=== PATIENT | female | born 1945 | race Hispanic/Latino ===

== ENCOUNTER 2017-04-18 14:20 | Inpatient (IN) | payer MEDICARE ==
--- NOTE | 2017-04-18 14:40 | ED PDOC ---
HPI: Chest Pain Time Seen by Provider: 04/18/17 14:29 Chief Complaint (Nursing): Palpitations Chief Complaint (Provider): Palpitations History Per: Patient History/Exam Limitations: no limitations Onset/Duration Of Symptoms: Sudden Onset Past Medical History Reviewed: Historical Data, Nursing Documentation, Vital Signs Vital Signs: Last Vital Signs Temp 96.8 F L 04/18/17 14:34 Pulse 146 H 04/18/17 14:30 Resp 20 04/18/17 14:30 BP 119/92 H 04/18/17 14:30 Pulse Ox 96 04/18/17 14:30 - Medical History PMH: Atrial Fibrillation, Cardia Arrhythmia, HTN, Hypercholesterolemia Denies: Chronic Kidney Disease - Surgical History Surgical History: Tonsillectomy - Family History Family History: States: Unknown Family Hx - Home Medications Home Medications: Ambulatory Orders Medication Instructions Recorded Aspirin [Ecotrin] 81 mg PO DAILY #30 ect 07/15/14 Atorvastatin [Lipitor] 20 mg PO HS #0 tab 07/15/14 Digoxin 0.25 mg PO DAILY #30 tab 07/15/14 Nadolol [Corgard] 40 mg PO DAILY #0 tab 07/15/14 traMADol [Ultram] 50 mg PO Q4 PRN #0 tab 07/15/14 Bimatoprost [Lumigan] 2.5 ml BOTHEYES QPM 04/08/16 Timolol 0.25% Ophth [Timoptic 1 drop OS BID 04/08/16 0.25% Ophth Soln] Zolpidem [Ambien] 10 mg PO PRN PRN 04/08/16 Oxycodone HCl/Acetaminophen 1 mg PO Q4 PRN #0 tablet 04/22/16 [Percocet 5-325 mg Tablet] - Allergies Allergies/Adverse Reactions: Allergies Allergy/AdvReac Type Severity Reaction Status Date / Time avocado Allergy SWELLING Verified 04/18/17 14:33 banana Allergy SWELLING Verified 04/18/17 14:33 kiwi Allergy SWELLING Verified 04/18/17 14:33 latex Allergy ANAPHYLAXIS Verified 04/18/17 14:33 Penicillins Allergy ANAPHYLAXIS Verified 04/18/17 14:33 blue cheese Allergy SWELLING Uncoded 04/18/17 14:33 Review of Systems ROS Statement: Except As Marked, All Systems Reviewed And Found Negative Constitutional: Positive for: Weakness Cardiovascular: Positive for: Palpitations, Other (Rapid heart rate). Negative for: Chest Pain Respiratory: Positive for: Shortness of Breath Gastrointestinal: Positive for: Nausea, Vomiting Neurological: Positive for: Weakness, Numbness, Other (Tingling of hands and feet) - ECG O2 Sat by Pulse Oximetry: 96
--- NOTE | 2017-04-18 14:54 | ED PDOC ---
HPI: Chest Pain Time Seen by Provider: 04/18/17 14:29 Chief Complaint (Nursing): Palpitations Chief Complaint (Provider): Palpitations History Per: EMS History/Exam Limitations: no limitations Onset/Duration Of Symptoms: Mins (prior to arrival ) Current Symptoms Are (Timing): Intermittent Episodes Additional Complaint(s): Serena Quinteros is a 72-year-old female with a past medical history of hypertension, hypercholesterolemia, atrial fibrillation, and arrythmia who presents to the ED via EMS for the evaluation of palpitations associated with numbness and tingling in her fingers and legs, shortness of breath, nausea, vomiting, and headache. She denies chest pain. She states that her palpitations and other symptoms were onset earlier today when she was at a routine check-up appointment with her ice seller. On field patient was given two doses of adenocard by paramedics. Technical Sales Consultant: Baltazar Khalil MD Past Medical History Reviewed: Historical Data, Nursing Documentation, Vital Signs Vital Signs: Last Vital Signs Temp 98.1 F 04/19/17 08:00 Pulse 68 04/19/17 09:03 Resp 18 04/19/17 08:00 BP 159/81 H 04/19/17 09:03 Pulse Ox 96 04/19/17 09:26 - Medical History PMH: Atrial Fibrillation, Cardia Arrhythmia, HTN, Hypercholesterolemia Denies: Chronic Kidney Disease - Surgical History Surgical History: Tonsillectomy - Family History Family History: States: Unknown Family Hx - Home Medications Home Medications: Ambulatory Orders Medication Instructions Recorded Amiodarone Hydrochloride 200 mg PO DAILY 04/18/17 [Cordarone] Aspirin [Ecotrin] 81 mg PO DAILY 04/18/17 Atorvastatin [Lipitor] 20 mg PO HS 04/18/17 Latanoprost 0.005% Opht [Xalatan 1 drop EACHEYE HS 04/18/17 Opht] Metoprolol Succinate [Toprol XL] 100 mg PO DAILY 04/18/17 Timolol 0.25% Ophth [Timoptic 1 drop EACHEYE BID 04/18/17 0.25% Ophth Soln] Zolpidem [Ambien] 5 mg PO HS PRN 04/18/17 traMADol [Ultram] 50 mg PO Q6H PRN 04/18/17 - Allergies Allergies/Adverse Reactions: Allergies Allergy/AdvReac Type Severity Reaction Status Date / Time avocado Allergy SWELLING Verified 04/18/17 14:33 banana Allergy SWELLING Verified 04/18/17 14:33 kiwi Allergy SWELLING Verified 04/18/17 14:33 latex Allergy ANAPHYLAXIS Verified 04/18/17 14:33 Penicillins Allergy ANAPHYLAXIS Verified 04/18/17 14:33 blue cheese Allergy SWELLING Uncoded 04/18/17 14:33 Review of Systems ROS Statement: Except As Marked, All Systems Reviewed And Found Negative Cardiovascular: Positive for: Palpitations. Negative for: Chest Pain Respiratory: Positive for: Shortness of Breath Gastrointestinal: Positive for: Nausea, Vomiting Neurological: Positive for: Numbness (in fingers and legs ), Headache, Other ( tingling in fingers and legs ) Physical Exam - Reviewed Nursing Documentation Reviewed: Yes Vital Signs Reviewed: Yes - Physical Exam Appears: Positive for: Well, Non-toxic, Uncomfortable Head Exam: Positive for: ATRAUMATIC, NORMAL INSPECTION, NORMOCEPHALIC Skin: Positive for: Normal Color, Warm, DRY Eye Exam: Positive for: Normal appearance ENT: Positive for: Normal ENT Inspection Neck: Positive for: Normal, Painless ROM, Supple Cardiovascular/Chest: Positive for: Regular Rate, Rhythm, Other (Alternating tachycardia and sinus rhythm ). Negative for: Edema Respiratory: Positive for: Normal Breath Sounds Gastrointestinal/Abdominal: Positive for: Normal Exam, Bowel Sounds, Soft. Negative for: Tenderness Back: Positive for: Normal Inspection Extremity: Positive for: Normal ROM. Negative for: Pedal Edema Neurologic/Psych: Positive for: Alert, Oriented - Laboratory Results Result Diagrams: 04/19/17 06:00 04/19/17 06:00 - ECG ECG: Positive for: Viewed By Wy ECG Rhythm: Positive for: Sinus Tachycardia, ST/T Changes (depressions in II,III , AVF) O2 Sat by Pulse Oximetry: 96 ([id number]) Pulse Ox Interpretation: Normal - Critical Care Total Time (In Min): 30 Comments: patient had labile BP reading, was in distress and had alternating tachycardia and NSR. There is evidence of myocardial ischemia on EKG finding. Medical Decision Making Medical Decision Making: Initial Impression: rule out myocardial ischemia Initial Plan: * labs * Troponin I * PTT * PT * Adenosine 12 mg IV * lanoxin 0.5 mg IV * reevaluation 14:45 4 mg zofran IV 14:49 adenosine 12 mg IV 14:50 Consulted ice seller, Dr. Khalil who believes patient should be admitted under his service, potentially in the ICU for overnight monitoring. Recommends to check labs and give IV fluids. Digoxin 0.5mg IVP also given in conjunction with discussion with Dr. Khalil. Cardizem would also be a good choice but there are concerns over the labile BP readings. Scribe Attestation: Documented by Mel Pedro, acting as a scribe for Bri Lacey MD. Provider Scribe Attestation: All medical record entries made by the Scribe were at my direction and personally dictated by me. I have reviewed the chart and agree that the record accurately reflects my personal performance of the history, physical exam, medical decision making, and the department course for this patient. I have also personally directed, reviewed, and agree with the discharge instructions and disposition. Disposition - Clinical Impression Clinical Impression: Supraventricular tachycardia, Hypokalemia - Patient ED Disposition Is Patient to be Admitted: Transfer of Care - Disposition Disposition: Transfer of Care Disposition Time: 15:00 Condition: GUARDED Patient Signed Over To: Susannah Verde Handoff Comments: Patient is signed out to Susannah Verde MD pending ED work up, reevaluation and final disposition. - POA Present On Arrival: None
[2017-04-18] MEDS ORDERED: Digoxin 500 mcg/2ml (0.5 mg/2ml) Inj IVP ONE (14:57)
[2017-04-18] MEDS ORDERED: Sodium Chloride 0.9% 1,000 ML IV STA (14:59)
[2017-04-18] MEDS ORDERED: Digoxin 500 mcg/2ml (0.5 mg/2ml) Inj ONE (15:03)
[2017-04-18 15:18] LABS: BASO % 0.4 % (0.0-2.0); EOS # 0.1 K/uL (0.0-0.7); EOS % 0.8 % (0.0-4.0); HEMOGLOBIN 14.7 g/dL (12.0-16.0); LYMPH # 3.4 K/uL (1.0-4.3); LYMPH % 32.5 % (20.0-40.0); MEAN CELL VOLUME 83.8 fl (81.0-99.0); MEAN CORPUSCULAR HEMOGLOBIN 28.2 pg (27.0-31.0); MEAN CORPUSCULAR HGB CONC 33.6 g/dL (33.0-37.0); MEAN PLATELET VOLUME 8.4 fl (7.2-11.7); MONO # 0.9 K/uL (0.0-0.8); MONO % 8.3 % (0.0-10.0); NEUT # 6.1 K/uL (1.8-7.0); RBC 5.21 Mil/uL (3.80-5.20); RED CELL DISTRIBUTION WIDTH 14.7 % (11.5-14.5); WHITE BLOOD COUNT 10.5 K/uL (4.8-10.8)
--- NOTE | 2017-04-18 15:18 | ED PDOC ---
- Laboratory Results Result Diagrams: 04/18/17 15:00 04/18/17 15:00 - ECG O2 Sat by Pulse Oximetry: 96 ([id number]) Pulse Ox Interpretation: Normal - Progress Re-evaluation Time: 17:00 Condition: Improved - Critical Care Total Time (In Min): 30 Documented Critical Care: Time excludes all time spent performint seperately billable procedures Medical Decision Making Medical Decision Makin:00 Patient is signed out to Bri Lacey MD pending ED work up, reevaluation and final disposition. Pt with SVT, spontaneously converts to sinus, but recurs. Had been given adenocard 12mg in ER and converted to sinus but recurred. Dr Lacey d/w Dr Khalil Cardiology, who recommended digoxin. 16:00 Pt with more frequent and prolonged episodes of sinus rhythm. Pt feeling better. Troponin negative. ABG demonstrated hyperventilation. Advised pt to breathe normally (she was attempting deep breaths to correct her SVT) and NC O2 removed. Potassium ordered for hypokalemia. DW Dr Khalil again. Advised ICU placement RANDI Llamas for ICU placement RANDI Johnson resident for admission to Dr Marie. DW pt and family findings and plan of care. Scribe Attestation: Documented by Mel Pedro, acting as a scribe for Susannah Verde MD. Provider Scribe Attestation: All medical record entries made by the Scribe were at my direction and personally dictated by me. I have reviewed the chart and agree that the record accurately reflects my personal performance of the history, physical exam, medical decision making, and the department course for this patient. I have also personally directed, reviewed, and agree with the discharge instructions and disposition. Disposition - Clinical Impression Clinical Impression: Supraventricular tachycardia, Hypokalemia - POA Present On Arrival: None - Disposition Disposition: Admitted as In-Patient Disposition Time: 15:00 Condition: GUARDED
[2017-04-18 15:23] LABS: ALB/GLOB RATIO 1.7 (1.0-2.1); ALBUMIN 4.3 g/dL (3.5-5.0); ALT/SGPT 24 U/L (9-52); AST/SGOT 21 U/L (14-36); BLOOD UREA NITROGEN 13 mg/dl (7-17); CALCIUM 9.6 mg/dL (8.4-10.2); GFR AFRICAN-AMERICAN 59; GFR NON-AFRICAN AMERICAN 49
[2017-04-18] MEDS ORDERED: Potassium Chloride 20 mEq ER Tab PO STA (15:26)
[2017-04-18 15:46] LABS: PARTIAL THROMBOPLASTIN TIME 31.4 Seconds (25.6-37.1); PROTHROMBIN TIME 11.2 Seconds (9.8-13.1)
[2017-04-18] MEDS ORDERED: Potassium CL 10mEq/100ml 100 ML IVPB STA (15:49)
[2017-04-18] MEDS ORDERED: Potassium Chloride 10 mEq ER Tab PO ONE (15:52)
--- NOTE | 2017-04-18 16:19 | RAD ---
PROCEDURE: CHEST RADIOGRAPH, 1 VIEW HISTORY: palpitations COMPARISON: 04/04/2016. FINDINGS: LUNGS: The lungs are well inflated and clear. PLEURA: No pneumothorax or pleural fluid seen. CARDIOVASCULAR: Normal. OSSEOUS STRUCTURES: No significant abnormalities. VISUALIZED UPPER ABDOMEN: Normal. OTHER FINDINGS: None. IMPRESSION: No active pulmonary disease.
[2017-04-18 16:23] LABS: ABG ALLEN TEST YES; ARTERIAL BLOOD GAS HCO3 24.6 mmol/L (21-28); ARTERIAL BLOOD GAS O2 SAT 99.8 % (95-98); ARTERIAL BLOOD GAS PCO2 19 mm/Hg (35-45); ARTERIAL BLOOD GAS PO2 174 mm/Hg (80-100); ARTERIAL BLOOD GAS TCO2 19.3 mmol/L (22-28)
[2017-04-18 17:15] LABS: SQUAMOUS EPITHIAL 5 /hpf (0-5); URINE BACTERIA RARE (<OCC); URINE BILIRUBIN NEGATIVE (NEGATIVE); URINE BLOOD NEGATIVE (NEGATIVE); URINE CLARITY CLEAR (Clear); URINE COLOR STRAW (YELLOW); URINE GLUCOSE (UA) NEG (Normal); URINE LEUKOCYTE ESTERASE TRACE Leu/uL (Negative); URINE NITRATE NEGATIVE (NEGATIVE); URINE PROTEIN 30 mg/dL (NEGATIVE); URINE UROBILINOGEN 0.2-1.0 mg/dL (0.2-1.0)
--- NOTE | 2017-04-18 18:27 | CARD ---
APPROVED REPORT EKG Measurement Heart [id number] <Conclusion> Atrial fibrillation Cannot rule out Anterior infarct, age undetermined ST & T wave abnormality, consider lateral ischemia Abnormal ECG
--- NOTE | 2017-04-18 18:47 | CP.CCUPN ---
CCU Subjective - Physician Review Subjective (Free Text): Consult for ICU admission and management, discussed with Contact Person and ER MD: 72F with PMH: HYN, Hyperlipidemia, PSVT, Thyroidectomy, negative Pharm EST testing in oct 2015 and normal ECHO- admitted today after being sent over from Cardios office and noted to be in SVT. She had complained of feeling dizzy, weak with palpitations, paresthesias / numbness in the hands and feet, +SOB, which persisted over 1 hour. As EMS was called, patient vomited twice before being transported to the ER. In the ER, found to be in SVT at rate 188. Given Adenosine 6mg, then 12mg, with very brief-short lived effect. In ER, given more adenosine and finally Digoxin which slowed rate down to below 100. No hypotension noted, but with SBPs in 110s, given a 1 L saline fluid bolus. Presently, HR 88, SBP 150, awake and alert and feels less dizzy, denies any headaches, vertigo, n/v, diaphoresis, CP or SOB, MICHEL, leg swelling; no focal neuro deficits, nor any abdominal complaints. Patient has been taking ASA regularly and took extra 2 tabs adult ASA last night for migraines and this AM prior to going out for her regularly scheduled Cardio visit. Family members state she has demonstrated panic attacks in the past. Transported to ICU from ER , arrived to ICU in NSR at 71/min, SBP 149/75 and felt to back in her usual state of health. Drug Allergies: Penicillin Home Meds: Amiodarone, Toprol XL, ASA, Xalatan, Timolol opth, Ambien, Ultram prn ROS: as above, other 10+ system review with no pertinent negs or positives. PMSFH: All nursing and physician documentation for this admission reviewed, no new pertinent info relevant to current medical problems noted. CCU Objective - Vital Signs / Intake & Output Vital Signs (Last 4 hours): Vital Signs Temp Pulse Resp BP Pulse Ox 04/18/17 18:27 98 F 68 17 149/71 97 04/18/17 17:00 98.0 F 89 14 141/84 100 04/18/17 16:26 88 16 152/78 H 100 - Physical Exam Head: Positive for: Normocephalic Pupils: Positive for: PERRL Extroacular Muscles: Positive for: EOMI Conjunctiva: Positive for: Normal Ears: Positive for: Normal Mouth: Positive for: Moist Mucous Membranes Pharnyx: Positive for: Normal Nose (Internal): Positive for: Normal Inspection Neck: Negative for: Meningeal Signs, JVD, Lymphadenopathy, Bruit Respiratory/Chest: Positive for: Clear to Auscultation Cardiovascular: Positive for: Regular Rate and Rhythm. Negative for: Murmurs, Rub Abdomen: Positive for: Normal Bowel Sounds. Negative for: Tenderness, Distention Lower Extremity: Positive for: NORMAL PULSES. Negative for: Edema, CALF TENDERNESS, Cyanosis Neurological: Positive for: GCS=15, CN II-XII Intact, Speech Normal, Motor Func Grossly Intact Skin: Positive for: Warm. Negative for: Rashes - Medications Active Medications: Active Medications Generic Name Dose Route Start Last Admin Trade Name Freq PRN Reason Stop Dose Admin Amiodarone HCl 200 mg 04/18/17 18:28 Cordarone PO DAILY [facility] Aspirin 81 mg 04/19/17 09:00 Ecotrin PO DAILY [facility] Atorvastatin Calcium 20 mg 04/19/17 09:00 Lipitor PO DAILY [facility] Enoxaparin Sodium 40 mg 04/19/17 09:00 Lovenox SC DAILY [facility] Protocol Famotidine 40 mg 04/18/17 22:00 Pepcid PO HS [facility] Metoprolol Succinate 100 mg 04/19/17 09:00 Toprol Xl PO DAILY [facility] Tramadol HCl 50 mg 04/18/17 18:42 Ultram PO Q6 PRN Pain, moderate (4-7) Zolpidem Tartrate 5 mg 04/18/17 18:29 Ambien PO HS PRN Insomnia - Patient Studies Lab Studies: Lab Studies 04/18/17 04/18/17 Range/Units 16:20 16:15 pCO2 19 L* (35-45) mm/Hg pO2 174 H (80-100) mm/Hg HCO3 24.6 (21-28) mmol/L ABG pH 7.60 H (7.35-7.45) ABG Total CO2 19.3 L (22-28) mmol/L ABG O2 Saturation 99.8 H (95-98) % ABG Base Excess -0.5 (-2.0-3.0) mmol/L Darrell Test Yes ABG Potassium 3.1 L (3.6-5.2) mmol/L A-a O2 Difference 30.0 mm/Hg Sodium 140.0 (132-148) mmol/L Chloride 114.0 H (98-107) mmol/L Glucose 103 (65-105) mg/dL Lactate 1.4 (0.7-2.1) mmol/L FiO2 32.0 % Crit Value Called To Dr fady batres Crit Value Called By Rt Crit Value Read Back Y Blood Gas Notified Time 1620 Arterial Blood Potassium 3.1 L (3.6-5.2) mmol/L Urine Color Straw (YELLOW) Urine Clarity Clear (Clear) Urine pH 7.0 (5.0-8.0) Ur Specific Kenneth 1.006 (1.003-1.030) Urine Protein 30 (NEGATIVE) mg/dL Urine Glucose (UA) Neg (Normal) mg/dL Urine Ketones Trace (NEGATIVE) mg/dL Urine Blood Negative (NEGATIVE) Urine Nitrate Negative (NEGATIVE) Urine Bilirubin Negative (NEGATIVE) Urine Urobilinogen 0.2-1.0 (0.2-1.0) mg/dL Ur Leukocyte Esterase Trace (Negative) Gerardo/uL Urine RBC (Auto) 3 (0-3) /hpf Urine Microscopic WBC 3 (0-5) /hpf Ur Squamous Epith Cells 5 (0-5) /hpf Urine Bacteria Rare (<OCC) Laboratory Results - last 24 hr 04/18/17 04/18/17 16:15 16:20 pCO2 19 L* pO2 174 H HCO3 24.6 ABG pH 7.60 H ABG Total CO2 19.3 L ABG O2 Saturation 99.8 H ABG Base Excess -0.5 Darrell Test Yes ABG Potassium 3.1 L A-a O2 Difference 30.0 Sodium 140.0 Chloride 114.0 H Glucose 103 Lactate 1.4 FiO2 32.0 Crit Value Called To Dr fady batres Crit Value Called By Rt Crit Value Read Back Y Blood Gas Notified Time 1620 Arterial Blood Potassium 3.1 L Urine Color Straw Urine Clarity Clear Urine pH 7.0 Ur Specific Kenneth 1.006 Urine Protein 30 Urine Glucose (UA) Neg Urine Ketones Trace Urine Blood Negative Urine Nitrate Negative Urine Bilirubin Negative Urine Urobilinogen 0.2-1.0 Ur Leukocyte Esterase Trace Urine RBC (Auto) 3 Urine Microscopic WBC 3 Ur Squamous Epith Cells 5 Urine Bacteria Rare Radiology Interpretations (Free Text): (My Interp) CXR: clear lung carroll. EKG/Cardiology Interpretations (Free Text): (My Interp) EKG: A Fib, 94/min, poor R wave progression anteriorly, T inversions in inferolateral leads. Fingerstick Blood Sugar Results: 112 Review of Systems - Review of Systems Review of Systems: As Above. Critical Care Progress Note - Extremities/Vascular Does the Patient have a Central Venous Catheter?: No Does the Patient need a Central Venous Catheter?: No Does the Patient have a Martin Catheter?: No Does the Patient need a Martin Catheter?: No - Prophylaxis GI Prophylaxis GI: Not Indicated - Prophylaxis DVT Prophylaxis DVT: Lovenox - Nutrition Nutrition: Nutrition Category Date Time Status Heart Healthy Diet [DIET] Diets 04/18/17 Dinner Active Assessment/Plan - Assessment and Plan (Free Text) Assessment: MAJOR PROBLEMS: 1. PSVT with Paroxysmal A fib with RVR 2. Resp Alkalosis 2 Anxiety / Panic Disorder 3. Hypokalemia 4. Mild Hyperbilirubinemia with normal AP/Transaminases 5. h/o Thyroidectomy, r/o Acquired hypothyroidism Plan: PLAN: 1. Ineffectiveness of Adenosine noted, Digoxin appears to have some slowing effect, she has been on Amiodarone and would bolus her with IV Amio 150mg now and start a drip if tachycardia recurs. 2. Serial Trops and EKG 3. Consider cautious anxiolysis with PO Xanax. Check repeat ABG. Resolution of alkalotic state will improve all presenting symptoms and tachyarrhythmia. 4. TFTs 5. Supplement K, check Mag / Phos 6. r/o other possible toxic medication effects: Salicylate level. 7. Consider abdominal / liver US study.
--- NOTE | 2017-04-18 20:15 | CP.PCM.HP ---
<Dario Wang - Last Filed: 04/19/17 06:22> History of Present Illness - History of Present Illness History of Present Illness: 72 yo F w PMHx of HTN, Afib, and HLD is admitted due to palpitations, headache, nausea, and vomiting due to SVT and paroxysmal Afib. She was at her [employer] 's office when she began to feel symptoms, which occurred at same time as SVT was noted, as per Dr Khalil. EMS was called, adenosine was attempted to break her rhythm, but any such resolution was only momentary. When she got to the ER, she was given Digoxin 0.5mg IVP which broke her SVT and eventually allowed her to convert back to Sinus Rhythm. Pt described feeling weak, diaphoretic, with numbness and tingling during the episode, but stated that her symptoms drastically improved soon after she converted. 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 Denies fevers/ chills, SOB, dyspnea, cough, abdominal pain, hematuria, dysuria, or other myalgias. PMD: Dr Craig Cardio: Dr Khalil PMHx: HTN, Paroxysmal Afib, and HLD PSHx: Denies Allergies: PCN, Latex Home Meds: Amiodarone 200mg, ASA 81mg, Lipitor 20mg, Toprol XL 100mg, Ambien 5mg SHx: denies etoh, cigarettes, illicit drugs ED Course: -CBC -CMP -Troponin -PT/INR/PTT -Adenosine 12mg -Digoxin 0.5mg -Zofran 4mg Present on Admission - Present on Admission Any Indicators Present on Admission: No History of DVT/PE: No History of Uncontrolled Diabetes: No Urinary Catheter: No Decubitus Ulcer Present: No Review of Systems - Review of Systems All systems: reviewed and no additional remarkable complaints except (see HPI) Past Patient History - Past Medical History & Family History Past Medical History?: Yes - Past Social History Smoking Status: Never Smoked - CARDIAC Hx Cardiac Disorders: Yes - PULMONARY Hx Respiratory Disorders: No - NEUROLOGICAL Hx Neurological Disorder: No - HEENT Hx HEENT Problems: No - RENAL Hx Chronic Kidney Disease: No - ENDOCRINE/METABOLIC Hx Endocrine Disorders: No - HEMATOLOGICAL/ONCOLOGICAL Hx Blood Disorders: No - INTEGUMENTARY Hx Dermatological Problems: No - MUSCULOSKELETAL/RHEUMATOLOGICAL Hx Falls: No - GASTROINTESTINAL Hx Gastrointestinal Disorders: No - GENITOURINARY/GYNECOLOGICAL Hx Genitourinary Disorders: No - PSYCHIATRIC Hx Substance Use: No - SURGICAL HISTORY Hx Tonsillectomy: Yes - ANESTHESIA Hx Anesthesia: Yes Hx Anesthesia Reactions: No Hx Malignant Hyperthermia: No Meds Allergies/Adverse Reactions: Allergies Allergy/AdvReac Type Severity Reaction Status Date / Time avocado Allergy SWELLING Verified 04/18/17 14:33 banana Allergy SWELLING Verified 04/18/17 14:33 kiwi Allergy SWELLING Verified 04/18/17 14:33 latex Allergy ANAPHYLAXIS Verified 04/18/17 14:33 Penicillins Allergy ANAPHYLAXIS Verified 04/18/17 14:33 blue cheese Allergy SWELLING Uncoded 04/18/17 14:33 Physical Exam - Constitutional Appears: No Acute Distress - Head Exam Head Exam: ATRAUMATIC, NORMOCEPHALIC - Eye Exam Eye Exam: EOMI Pupil Exam: PERRL - ENT Exam ENT Exam: Mucous Membranes Moist - Neck Exam Neck exam: Positive for: Full Rom. Negative for: Tenderness - Respiratory Exam Respiratory Exam: Clear to Auscultation Bilateral, NORMAL BREATHING PATTERN. absent: Wheezes - Cardiovascular Exam Cardiovascular Exam: REGULAR RHYTHM - GI/Abdominal Exam GI & Abdominal Exam: Normal Bowel Sounds, Soft. absent: Tenderness - Extremities Exam Extremities exam: Negative for: calf tenderness, pedal edema - Neurological Exam Neurological exam: Alert, CN II-XII Intact, Oriented x3 - Psychiatric Exam Psychiatric exam: Normal Affect, Normal Mood - Skin Skin Exam: Dry, Normal Color, Warm Results - Vital Signs Recent Vital Signs: Last Vital Signs Temp 98.8 F 04/18/17 19:38 Pulse 72 04/18/17 19:38 Resp 13 04/18/17 19:38 BP 144/81 04/18/17 19:38 Pulse Ox 97 04/18/17 19:38 - Labs Result Diagrams: 04/18/17 15:00 04/18/17 15:00 Labs: Laboratory Results - last 24 hr 04/18/17 04/18/17 04/18/17 16:15 16:20 19:15 pCO2 19 L* pO2 174 H HCO3 24.6 ABG pH 7.60 H ABG Total CO2 19.3 L ABG O2 Saturation 99.8 H ABG Base Excess -0.5 Darrell Test Yes ABG Potassium 3.1 L A-a O2 Difference 30.0 Sodium 140.0 Chloride 114.0 H Glucose 103 Lactate 1.4 FiO2 32.0 Crit Value Called To Dr fady batres Crit Value Called By Rt Crit Value Read Back Y Blood Gas Notified Time 1620 Arterial Blood Potassium 3.1 L Urine Color Straw Urine Clarity Clear Urine pH 7.0 Ur Specific [place] 1.006 Urine Protein 30 Urine Glucose (UA) Neg Urine Ketones Trace Urine Blood Negative Urine Nitrate Negative Urine Bilirubin Negative Urine Urobilinogen 0.2-1.0 Ur Leukocyte Esterase Trace Urine RBC (Auto) 3 Urine Microscopic WBC 3 Ur Squamous Epith Cells 5 Urine Bacteria Rare Salicylates < 1.0 Assessment & Plan - Assessment and Plan (Free Text) Plan: 72 yo F w PMHx of HTN, Afib, and HLD is admitted due to palpitations, headache, nausea, and vomiting due to SVT and paroxysmal Afib 1) Paroxysmal Afib -Seemingly converted following ICU admission -TSH: Elevated at 9.65 -ASA 81mg PO Daily -Amiodarone currently 400mg PO Daily; up from 200mg at home -Metoprolol 100mg PO Daily -Digoxin 0.25mg PO Daily -f/u CBC in AM -f/u CMP in AM -f/u UCx -Consider Endocrine Consult 2) Chest Pain r/o ACS -Troponin neg x2 -BNP: 289 -EKG does not show acute DE -f/u Troponin -f/u EKG 3) HTN -Metoprolol 100mg PO Daily -Digoxin 0.25mg PO Daily -f/u BPs 4) HLD -Atorvastatin 20mg PO Daily 5) DVT Prophylaxis -Lovenox 40mg SC Daily <Adan Craig - Last Filed: 04/21/17 06:42> Results - Vital Signs Recent Vital Signs: Last Vital Signs Temp 97.6 F 04/21/17 05:21 Pulse 50 L 04/21/17 05:21 Resp 18 04/21/17 05:21 BP 150/83 04/21/17 05:21 Pulse Ox 95 04/21/17 05:21 - Labs Result Diagrams: 04/20/17 06:00 04/20/17 06:00 Labs: Laboratory Results - last 24 hr 04/20/17 04/20/17 04/20/17 06:00 06:00 06:00 WBC RBC Hgb Hct MCV MCH MCHC RDW Plt Count Sodium 141 Potassium 4.1 Chloride 106 Carbon Dioxide 29 Anion Gap 11 BUN 13 Creatinine 1.1 Est GFR ( Amer) 59 Est GFR (Non-Af Amer) 49 Random Glucose 91 Calcium 9.2 Free T4 1.28 Thyroxine (T4) 8.88 TSH 3rd Generation 8.02 H Digoxin 1.8 04/20/17 06:00 WBC 5.8 RBC 4.66 Hgb 13.2 Hct 39.1 MCV 84.0 MCH 28.3 MCHC 33.7 RDW 14.5 Plt Count 141 Sodium Potassium Chloride Carbon Dioxide Anion Gap BUN Creatinine Est GFR ( Amer) Est GFR (Non-Af Amer) Random Glucose Calcium Free T4 Thyroxine (T4) TSH 3rd Generation Digoxin Attending/Attestation - Attestation I have personally seen and examined this patient.: Yes I have fully participated in the care of the patient.: Yes I have reviewed all pertinent clinical information: Yes
[2017-04-18] MEDS ORDERED: Digoxin 250 mcg (0.25 mg) Tab PO ONE (21:20)
--- NOTE | 2017-04-18 21:38 | CP.PCM.CON ---
History of Present Illness - History of Present Illness History of Present Illness: THE PATIENT IS A 72 YEAR OLD FEMALE WHO I FIRST MET IN JULY 2014 WHEN SHE WAS ADMITTED TO [facility] FOR ATRIAL FIBRILLATION AND SHE CONVERTED TO SINUS RHYTHM WITH DIGOXIN AND A BETA HIRAM. SHE STATES THAT SHE BLACKED OUT FROM ATRIAL FIBRILLATION WHEN SHE WAS IN [facility] A FEW YEARS BEFORE THAT TIME. SHE STATES THAT SHE HAS HAD SHORT PALPITATION EPISODES SINCE JULY 2014 BUT HAS ALWAYS BEEN IN SINUS RHYTHM ON EKGS TAKEN IN THE OFFICE. SHE WAS STARTED ON AMIODARONE 200 MGS DAILY A FEW MONTHS AGO DUE TO RECURRENT PALPITATIONS AND THE DIGOXIN WAS STOPPED BUT SHE WAS KEPT ON METOPROLOL ER 100MGS DAILY ALSO. I SAW HER A MONTH AGO AND SHE STILL HAD OCCASIONAL PALPITATIONS AND ADVISED HER TO INCREASE HER AMIODARONE TO 400 MGS DAILY BUT SHE WANTED TO THINK IT OVER INSTEAD. SHE HAD A FOLLOW-UP VISIT WITH ME TODAY AND WHEN SHE ARRIVED SHE SAID THAT PALPITATIONS BEGAN SHE WAS WALKING TO MY OFFICE AND SHE WAS LIGHTHEADED AND WEAK. I GOT HER ON THE EXAM TABLE AND AN EKG SHOWED SVT AT 179 BPM. IT BROKE USING CAROTID SINUS MASSAGE FOR A FEW SECONDS BUT WENT BACK TO SVT VERY QUICKLY. SHE WAS DIAPHORETIC AND WEAK AND HER SYSTOLIC BP WAS ONLY 90. I CALLED THE PAR[facility] WHO TRIED ADENOSINE IV AND THE PATIENT WENT INTO SINUS RHYTHM FOR ONLY A FEW SECONDS AND THEN WENT BACK TO RAPID SVT. SHE DID NOT HAVE ANY CHEST PAIN. SHE WAS TRANSPORTED TO [facility] ER WHERE SHE WAS STILL IN SVT AND DIGOXIN 0.5 MG IV WAS GIVEN AND SHE EVENTUALLY WENT BACK TO SINUS RHYTHM WITHIN ABOUT ONE HOUR AND HAS REMAINED IN IT SINCE. SHE WAS ADMITTED TO THE ICU. SHE FEELS BACK TO HER USUAL SELF NOW. SHE ALSO HAS A HISTORY OF HYPERTENSION AND HYPERLIPIDEMIA. Past Patient History - Past Medical History & Family History Past Medical History?: Yes - Past Social History Smoking Status: Never Smoked - CARDIAC Hx Cardiac Disorders: Yes - PULMONARY Hx Respiratory Disorders: No - NEUROLOGICAL Hx Neurological Disorder: No - HEENT Hx HEENT Problems: No - RENAL Hx Chronic Kidney Disease: No - ENDOCRINE/METABOLIC Hx Endocrine Disorders: No - HEMATOLOGICAL/ONCOLOGICAL Hx Blood Disorders: No - INTEGUMENTARY Hx Dermatological Problems: No - MUSCULOSKELETAL/RHEUMATOLOGICAL Hx Falls: No - GASTROINTESTINAL Hx Gastrointestinal Disorders: No - GENITOURINARY/GYNECOLOGICAL Hx Genitourinary Disorders: No - PSYCHIATRIC Hx Substance Use: No - SURGICAL HISTORY Hx Tonsillectomy: Yes - ANESTHESIA Hx Anesthesia: Yes Hx Anesthesia Reactions: No Hx Malignant Hyperthermia: No Meds Allergies/Adverse Reactions: Allergies Allergy/AdvReac Type Severity Reaction Status Date / Time avocado Allergy SWELLING Verified 04/18/17 14:33 banana Allergy SWELLING Verified 04/18/17 14:33 kiwi Allergy SWELLING Verified 04/18/17 14:33 latex Allergy ANAPHYLAXIS Verified 04/18/17 14:33 Penicillins Allergy ANAPHYLAXIS Verified 04/18/17 14:33 blue cheese Allergy SWELLING Uncoded 04/18/17 14:33 - Medications Medications: Current Medications Amiodarone HCl (Cordarone) 400 mg PO DAILY [facility] Aspirin (Ecotrin) 81 mg PO DAILY [facility] Atorvastatin Calcium (Lipitor) 20 mg PO DAILY [facility] Digoxin (Lanoxin) 0.25 mg PO ONCE ONE Stop: 04/18/17 21:21 Digoxin (Lanoxin) 0.25 mg PO DAILY [facility] Enoxaparin Sodium (Lovenox) 40 mg SC DAILY [facility] PRN Reason: Protocol Famotidine (Pepcid) 40 mg PO HS [facility] Last Admin: 04/18/17 21:03 Dose: 40 mg Metoprolol Succinate (Toprol Xl) 100 mg PO DAILY [facility] Tramadol HCl (Ultram) 50 mg PO Q6 PRN PRN Reason: Pain, moderate (4-7) Zolpidem Tartrate (Ambien) 5 mg PO HS PRN PRN Reason: Insomnia Physical Exam - Respiratory Exam Respiratory Exam: Clear to Auscultation Bilateral - Cardiovascular Exam Cardiovascular Exam: REGULAR RHYTHM, +S1, +S2 - Extremities Exam Extremities exam: Positive for: normal inspection - Additional Findings Additional findings: EKG IN THE OFFICE AT ABOUT 1 PM SHOWED SVT, RATE OF 179 BPM 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 NSR TROPONIN NORMAL X 2 K+ 3.2 RECENT ECHO LVH, LVEF 65% PHARMACOLOGICAL STRESS TEST IN 2016 NEGATIVE FOR ISCHEMIA Results - Vital Signs Recent Vital Signs: Last Vital Signs Temp 98.8 F 04/18/17 19:38 Pulse 74 04/18/17 21:01 Resp 13 04/18/17 19:38 BP 173/95 H 04/18/17 21:01 Pulse Ox 97 04/18/17 19:38 - Labs Result Diagrams: 04/18/17 15:00 04/18/17 15:00 Labs: Laboratory Results - last 24 hr 04/18/17 04/18/17 04/18/17 16:15 16:20 19:15 pCO2 19 L* pO2 174 H HCO3 24.6 ABG pH 7.60 H ABG Total CO2 19.3 L ABG O2 Saturation 99.8 H ABG Base Excess -0.5 Darrell Test Yes ABG Potassium 3.1 L A-a O2 Difference 30.0 Sodium 140.0 Chloride 114.0 H Glucose 103 Lactate 1.4 FiO2 32.0 Crit Value Called To Dr fady batres Crit Value Called By Rt Crit Value Read Back Y Blood Gas Notified Time 1620 Troponin I Free T4 Arterial Blood Potassium 3.1 L Urine Color Straw Urine Clarity Clear Urine pH 7.0 Ur Specific [place] 1.006 Urine Protein 30 Urine Glucose (UA) Neg Urine Ketones Trace Urine Blood Negative Urine Nitrate Negative Urine Bilirubin Negative Urine Urobilinogen 0.2-1.0 Ur Leukocyte Esterase Trace Urine RBC (Auto) 3 Urine Microscopic WBC 3 Ur Squamous Epith Cells 5 Urine Bacteria Rare Salicylates < 1.0 04/18/17 04/18/17 19:15 19:15 pCO2 pO2 HCO3 ABG pH ABG Total CO2 ABG O2 Saturation ABG Base Excess Darrell Test ABG Potassium A-a O2 Difference Sodium Chloride Glucose Lactate FiO2 Crit Value Called To Crit Value Called By Crit Value Read Back Blood Gas Notified Time Troponin I 0.0750 Free T4 1.26 Arterial Blood Potassium Urine Color Urine Clarity Urine pH Ur Specific [place] Urine Protein Urine Glucose (UA) Urine Ketones Urine Blood Urine Nitrate Urine Bilirubin Urine Urobilinogen Ur Leukocyte Esterase Urine RBC (Auto) Urine Microscopic WBC Ur Squamous Epith Cells Urine Bacteria Salicylates Assessment & Plan - Assessment and Plan (Free Text) Assessment: SYMPTOMATIC AND PROLONGED SVT EPISODE TODAY AT 179 BPM -NOW BACK IN NSR HYPERTENSION HYPERLIPIDEMIA Plan: THE PATIENT WAS ADMITTED TO THE ICU O2 VIA NC, DIGITALIZE, INCREASE AMIODARONE TO 400 MGS DAILY, CONTINUE METOPROLOL ER 100 MGS DAILY, KCL, ASPIRIN, LOVENOX, ATORVASTATIN SEIAL EKGS AND TROPONINS FU CMP OBSERVE RHYTHM
[2017-04-18 21:51] VITALS: BMI 28.8
[2017-04-19 06:41] LABS: BASO % 0.3 % (0.0-2.0); EOS # 0.1 K/uL (0.0-0.7); EOS % 1.3 % (0.0-4.0); HEMOGLOBIN 13.1 g/dL (12.0-16.0); LYMPH # 1.9 K/uL (1.0-4.3); LYMPH % 27.6 % (20.0-40.0); MEAN CELL VOLUME 84.3 fl (81.0-99.0); MEAN CORPUSCULAR HEMOGLOBIN 28.1 pg (27.0-31.0); MEAN CORPUSCULAR HGB CONC 33.3 g/dL (33.0-37.0); MONO # 0.5 K/uL (0.0-0.8); MONO % 6.9 % (0.0-10.0); NEUT # 4.4 K/uL (1.8-7.0); NEUT % 63.9 % (50.0-75.0); NRBC % 0.1 % (0.0-0.0); RBC 4.67 Mil/uL (3.80-5.20); RED CELL DISTRIBUTION WIDTH 14.4 % (11.5-14.5); WHITE BLOOD COUNT 6.9 K/uL (4.8-10.8)
[2017-04-19 06:59] LABS: ALB/GLOB RATIO 1.6 (1.0-2.1); ALBUMIN 3.8 g/dL (3.5-5.0); ALT/SGPT 22 U/L (9-52); AST/SGOT 19 U/L (14-36); BLOOD UREA NITROGEN 13 mg/dl (7-17); CALCIUM 9.1 mg/dL (8.4-10.2); GFR AFRICAN-AMERICAN > 60; GFR NON-AFRICAN AMERICAN 55
--- NOTE | 2017-04-19 08:13 | CP.CCUPN ---
CCU Subjective - Physician Review Events Since Last Encounter (Free Text): 04/19/17 08:10 Patient awake, no distress, no fever, no chest pain, follow commands, no pressors, events reviewed CCU Objective - Vital Signs / Intake & Output Vital Signs (Last 4 hours): Vital Signs Pulse Resp BP Pulse Ox 04/19/17 06:00 64 12 122/72 94 L Intake and Output (Last 8hrs): Intake & Output 04/18/17 04/19/17 04/19/17 22:59 06:59 14:59 Intake Total 370 220 Output Total 300 200 Balance 70 20 Weight 168 lb Intake: IV 10 Oral 360 220 Output: Urine 300 200 Urine, Voided 300 200 - Physical Exam Head: Positive for: Normocephalic Pupils: Positive for: PERRL Extroacular Muscles: Positive for: EOMI Conjunctiva: Positive for: Normal Ears: Positive for: Normal Mouth: Positive for: Moist Mucous Membranes Pharnyx: Positive for: Normal Nose (Internal): Positive for: Normal Inspection Neck: Negative for: Meningeal Signs, JVD, Lymphadenopathy, Bruit Respiratory/Chest: Positive for: Clear to Auscultation Cardiovascular: Positive for: Regular Rate and Rhythm. Negative for: Murmurs, Rub Abdomen: Positive for: Normal Bowel Sounds. Negative for: Tenderness, Distention Lower Extremity: Positive for: NORMAL PULSES. Negative for: Edema, CALF TENDERNESS, Cyanosis Neurological: Positive for: GCS=15, CN II-XII Intact, Speech Normal, Motor Func Grossly Intact Skin: Positive for: Warm. Negative for: Rashes - Medications Active Medications: Active Medications Generic Name Dose Route Start Last Admin Trade Name Regq PRN Reason Stop Dose Admin Amiodarone HCl 400 mg 04/19/17 09:00 Cordarone PO DAILY [facility] Aspirin 81 mg 04/19/17 09:00 Ecotrin PO DAILY [facility] Atorvastatin Calcium 20 mg 04/19/17 09:00 Lipitor PO DAILY [facility] Digoxin 0.25 mg 04/19/17 09:00 Lanoxin PO DAILY [facility] Enoxaparin Sodium 40 mg 04/19/17 09:00 Lovenox SC DAILY [facility] Protocol Famotidine 40 mg 04/18/17 22:00 04/18/17 21:03 Pepcid PO 40 mg HS KIRSTEN Administration Latanoprost 1 drop 04/19/17 22:00 Xalatan Opht OU HS KIRSTEN Metoprolol Succinate 100 mg 04/19/17 09:00 Toprol Xl PO DAILY KIRSTEN Timolol Maleate 1 drop 04/19/17 09:00 Timoptic 0.25% Ophth Soln OU BID KIRSTEN Tramadol HCl 50 mg 04/18/17 18:42 Ultram PO Q6 PRN Pain, moderate (4-7) Zolpidem Tartrate 5 mg 04/18/17 18:29 04/18/17 21:33 Ambien PO 5 mg HS PRN Administration Insomnia - Patient Studies Lab Studies: Lab Studies 04/19/17 04/19/17 04/18/17 Range/Units 06:00 06:00 19:15 WBC 6.9 (4.8-10.8) K/uL RBC 4.67 (3.80-5.20) Mil/uL Hgb 13.1 (12.0-16.0) g/dL Hct 39.4 (34.0-47.0) % MCV 84.3 (81.0-99.0) fl MCH 28.1 (27.0-31.0) pg MCHC 33.3 (33.0-37.0) g/dL RDW 14.4 (11.5-14.5) % Plt Count 155 (130-400) K/uL MPV 8.0 (7.2-11.7) fl Neut % (Auto) 63.9 (50.0-75.0) % Lymph % (Auto) 27.6 (20.0-40.0) % Becker % (Auto) 6.9 (0.0-10.0) % Eos % (Auto) 1.3 (0.0-4.0) % Baso % (Auto) 0.3 (0.0-2.0) % Neut # 4.4 (1.8-7.0) K/uL Lymph # 1.9 (1.0-4.3) K/uL Becker # 0.5 (0.0-0.8) K/uL Eos # 0.1 (0.0-0.7) K/uL Baso # 0.0 (0.0-0.2) K/uL pCO2 (35-45) mm/Hg pO2 (80-100) mm/Hg HCO3 (21-28) mmol/L ABG pH (7.35-7.45) ABG Total CO2 (22-28) mmol/L ABG O2 Saturation (95-98) % ABG Base Excess (-2.0-3.0) mmol/L Darrell Test ABG Potassium (3.6-5.2) mmol/L A-a O2 Difference mm/Hg Sodium 144 (132-148) mmol/L Chloride 110 H (98-107) mmol/L Glucose (65-105) mg/dL Lactate (0.7-2.1) mmol/L FiO2 % Crit Value Called To Crit Value Called By Crit Value Read Back Blood Gas Notified Time Potassium 3.9 (3.6-5.0) MMOL/L Carbon Dioxide 27 (22-30) mmol/L Anion Gap 11 (10-20) BUN 13 (7-17) mg/dl Creatinine 1.0 (0.7-1.2) mg/dL Est GFR ( Amer) > 60 Est GFR (Non-Af Amer) 55 Random Glucose 92 (65-105) mg/dL Calcium 9.1 (8.4-10.2) mg/dL Total Bilirubin 1.5 H (0.2-1.3) mg/dl AST 19 (14-36) U/L ALT 22 (9-52) U/L Alkaline Phosphatase 76 (38-126) U/L Troponin I 0.0700 0.0750 (0.00-0.120) ng/mL Total Protein 6.1 L (6.3-8.2) G/DL Albumin 3.8 (3.5-5.0) g/dL Globulin 2.3 (2.2-3.9) gm/dL Albumin/Globulin Ratio 1.6 (1.0-2.1) Free T4 (0.78-2.19) ng/dL Arterial Blood Potassium (3.6-5.2) mmol/L Urine Color (YELLOW) Urine Clarity (Clear) Urine pH (5.0-8.0) Ur Specific [place] (1.003-1.030) Urine Protein (NEGATIVE) mg/dL Urine Glucose (UA) (Normal) mg/dL Urine Ketones (NEGATIVE) mg/dL Urine Blood (NEGATIVE) Urine Nitrate (NEGATIVE) Urine Bilirubin (NEGATIVE) Urine Urobilinogen (0.2-1.0) mg/dL Ur Leukocyte Esterase (Negative) Gerardo/uL Urine RBC (Auto) (0-3) /hpf Urine Microscopic WBC (0-5) /hpf Ur Squamous Epith Cells (0-5) /hpf Urine Bacteria (<OCC) Salicylates mg/dl 04/18/17 04/18/17 04/18/17 Range/Units 19:15 19:15 16:20 WBC (4.8-10.8) K/uL RBC (3.80-5.20) Mil/uL Hgb (12.0-16.0) g/dL Hct (34.0-47.0) % MCV (81.0-99.0) fl MCH (27.0-31.0) pg MCHC (33.0-37.0) g/dL RDW (11.5-14.5) % Plt Count (130-400) K/uL MPV (7.2-11.7) fl Neut % (Auto) (50.0-75.0) % Lymph % (Auto) (20.0-40.0) % Becker % (Auto) (0.0-10.0) % Eos % (Auto) (0.0-4.0) % Baso % (Auto) (0.0-2.0) % Neut # (1.8-7.0) K/uL Lymph # (1.0-4.3) K/uL Becker # (0.0-0.8) K/uL Eos # (0.0-0.7) K/uL Baso # (0.0-0.2) K/uL pCO2 (35-45) mm/Hg pO2 (80-100) mm/Hg HCO3 (21-28) mmol/L ABG pH (7.35-7.45) ABG Total CO2 (22-28) mmol/L ABG O2 Saturation (95-98) % ABG Base Excess (-2.0-3.0) mmol/L Darrell Test ABG Potassium (3.6-5.2) mmol/L A-a O2 Difference mm/Hg Sodium (132-148) mmol/L Chloride (98-107) mmol/L Glucose (65-105) mg/dL Lactate (0.7-2.1) mmol/L FiO2 % Crit Value Called To Crit Value Called By Crit Value Read Back Blood Gas Notified Time Potassium (3.6-5.0) MMOL/L Carbon Dioxide (22-30) mmol/L Anion Gap (10-20) BUN (7-17) mg/dl Creatinine (0.7-1.2) mg/dL Est GFR ( Amer) Est GFR (Non-Af Amer) Random Glucose (65-105) mg/dL Calcium (8.4-10.2) mg/dL Total Bilirubin (0.2-1.3) mg/dl AST (14-36) U/L ALT (9-52) U/L Alkaline Phosphatase (38-126) U/L Troponin I (0.00-0.120) ng/mL Total Protein (6.3-8.2) G/DL Albumin (3.5-5.0) g/dL Globulin (2.2-3.9) gm/dL Albumin/Globulin Ratio (1.0-2.1) Free T4 1.26 (0.78-2.19) ng/dL Arterial Blood Potassium (3.6-5.2) mmol/L Urine Color Straw (YELLOW) Urine Clarity Clear (Clear) Urine pH 7.0 (5.0-8.0) Ur Specific [place] 1.006 (1.003-1.030) Urine Protein 30 (NEGATIVE) mg/dL Urine Glucose (UA) Neg (Normal) mg/dL Urine Ketones Trace (NEGATIVE) mg/dL Urine Blood Negative (NEGATIVE) Urine Nitrate Negative (NEGATIVE) Urine Bilirubin Negative (NEGATIVE) Urine Urobilinogen 0.2-1.0 (0.2-1.0) mg/dL Ur Leukocyte Esterase Trace (Negative) Gerardo/uL Urine RBC (Auto) 3 (0-3) /hpf Urine Microscopic WBC 3 (0-5) /hpf Ur Squamous Epith Cells 5 (0-5) /hpf Urine Bacteria Rare (<OCC) Salicylates < 1.0 mg/dl 04/18/17 Range/Units 16:15 WBC (4.8-10.8) K/uL RBC (3.80-5.20) Mil/uL Hgb (12.0-16.0) g/dL Hct (34.0-47.0) % MCV (81.0-99.0) fl MCH (27.0-31.0) pg MCHC (33.0-37.0) g/dL RDW (11.5-14.5) % Plt Count (130-400) K/uL MPV (7.2-11.7) fl Neut % (Auto) (50.0-75.0) % Lymph % (Auto) (20.0-40.0) % Becker % (Auto) (0.0-10.0) % Eos % (Auto) (0.0-4.0) % Baso % (Auto) (0.0-2.0) % Neut # (1.8-7.0) K/uL Lymph # (1.0-4.3) K/uL Becker # (0.0-0.8) K/uL Eos # (0.0-0.7) K/uL Baso # (0.0-0.2) K/uL pCO2 19 L* (35-45) mm/Hg pO2 174 H (80-100) mm/Hg HCO3 24.6 (21-28) mmol/L ABG pH 7.60 H (7.35-7.45) ABG Total CO2 19.3 L (22-28) mmol/L ABG O2 Saturation 99.8 H (95-98) % ABG Base Excess -0.5 (-2.0-3.0) mmol/L Darrell Test Yes ABG Potassium 3.1 L (3.6-5.2) mmol/L A-a O2 Difference 30.0 mm/Hg Sodium 140.0 (132-148) mmol/L Chloride 114.0 H (98-107) mmol/L Glucose 103 (65-105) mg/dL Lactate 1.4 (0.7-2.1) mmol/L FiO2 32.0 % Crit Value Called To Dr fady batres Crit Value Called By Rt Crit Value Read Back Y Blood Gas Notified Time 1620 Potassium (3.6-5.0) MMOL/L Carbon Dioxide (22-30) mmol/L Anion Gap (10-20) BUN (7-17) mg/dl Creatinine (0.7-1.2) mg/dL Est GFR ( Amer) Est GFR (Non-Af Amer) Random Glucose (65-105) mg/dL Calcium (8.4-10.2) mg/dL Total Bilirubin (0.2-1.3) mg/dl AST (14-36) U/L ALT (9-52) U/L Alkaline Phosphatase (38-126) U/L Troponin I (0.00-0.120) ng/mL Total Protein (6.3-8.2) G/DL Albumin (3.5-5.0) g/dL Globulin (2.2-3.9) gm/dL Albumin/Globulin Ratio (1.0-2.1) Free T4 (0.78-2.19) ng/dL Arterial Blood Potassium 3.1 L (3.6-5.2) mmol/L Urine Color (YELLOW) Urine Clarity (Clear) Urine pH (5.0-8.0) Ur Specific [place] (1.003-1.030) Urine Protein (NEGATIVE) mg/dL Urine Glucose (UA) (Normal) mg/dL Urine Ketones (NEGATIVE) mg/dL Urine Blood (NEGATIVE) Urine Nitrate (NEGATIVE) Urine Bilirubin (NEGATIVE) Urine Urobilinogen (0.2-1.0) mg/dL Ur Leukocyte Esterase (Negative) Gerardo/uL Urine RBC (Auto) (0-3) /hpf Urine Microscopic WBC (0-5) /hpf Ur Squamous Epith Cells (0-5) /hpf Urine Bacteria (<OCC) Salicylates mg/dl Laboratory Results - last 24 hr 04/18/17 04/18/17 04/18/17 16:15 16:20 19:15 WBC RBC Hgb Hct MCV MCH MCHC RDW Plt Count MPV Neut % (Auto) Lymph % (Auto) Becker % (Auto) Eos % (Auto) Baso % (Auto) Neut # Lymph # Becker # Eos # Baso # pCO2 19 L* pO2 174 H HCO3 24.6 ABG pH 7.60 H ABG Total CO2 19.3 L ABG O2 Saturation 99.8 H ABG Base Excess -0.5 Darrell Test Yes ABG Potassium 3.1 L A-a O2 Difference 30.0 Sodium 140.0 Chloride 114.0 H Glucose 103 Lactate 1.4 FiO2 32.0 Crit Value Called To Dr fady batres Crit Value Called By Rt Crit Value Read Back Y Blood Gas Notified Time 1620 Potassium Carbon Dioxide Anion Gap BUN Creatinine Est GFR ( Amer) Est GFR (Non-Af Amer) Random Glucose Calcium Total Bilirubin AST ALT Alkaline Phosphatase Troponin I Total Protein Albumin Globulin Albumin/Globulin Ratio Free T4 Arterial Blood Potassium 3.1 L Urine Color Straw Urine Clarity Clear Urine pH 7.0 Ur Specific [place] 1.006 Urine Protein 30 Urine Glucose (UA) Neg Urine Ketones Trace Urine Blood Negative Urine Nitrate Negative Urine Bilirubin Negative Urine Urobilinogen 0.2-1.0 Ur Leukocyte Esterase Trace Urine RBC (Auto) 3 Urine Microscopic WBC 3 Ur Squamous Epith Cells 5 Urine Bacteria Rare Salicylates < 1.0 04/18/17 04/18/17 04/19/17 19:15 19:15 06:00 WBC RBC Hgb Hct MCV MCH MCHC RDW Plt Count MPV Neut % (Auto) Lymph % (Auto) Becker % (Auto) Eos % (Auto) Baso % (Auto) Neut # Lymph # Becker # Eos # Baso # pCO2 pO2 HCO3 ABG pH ABG Total CO2 ABG O2 Saturation ABG Base Excess Darrell Test ABG Potassium A-a O2 Difference Sodium 144 Chloride 110 H Glucose Lactate FiO2 Crit Value Called To Crit Value Called By Crit Value Read Back Blood Gas Notified Time Potassium 3.9 Carbon Dioxide 27 Anion Gap 11 BUN 13 Creatinine 1.0 Est GFR ( Amer) > 60 Est GFR (Non-Af Amer) 55 Random Glucose 92 Calcium 9.1 Total Bilirubin 1.5 H AST 19 ALT 22 Alkaline Phosphatase 76 Troponin I 0.0750 0.0700 Total Protein 6.1 L Albumin 3.8 Globulin 2.3 Albumin/Globulin Ratio 1.6 Free T4 1.26 Arterial Blood Potassium Urine Color Urine Clarity Urine pH Ur Specific [place] Urine Protein Urine Glucose (UA) Urine Ketones Urine Blood Urine Nitrate Urine Bilirubin Urine Urobilinogen Ur Leukocyte Esterase Urine RBC (Auto) Urine Microscopic WBC Ur Squamous Epith Cells Urine Bacteria Salicylates 04/19/17 06:00 WBC 6.9 RBC 4.67 Hgb 13.1 Hct 39.4 MCV 84.3 MCH 28.1 MCHC 33.3 RDW 14.4 Plt Count 155 MPV 8.0 Neut % (Auto) 63.9 Lymph % (Auto) 27.6 Becker % (Auto) 6.9 Eos % (Auto) 1.3 Baso % (Auto) 0.3 Neut # 4.4 Lymph # 1.9 Becker # 0.5 Eos # 0.1 Baso # 0.0 pCO2 pO2 HCO3 ABG pH ABG Total CO2 ABG O2 Saturation ABG Base Excess Darrell Test ABG Potassium A-a O2 Difference Sodium Chloride Glucose Lactate FiO2 Crit Value Called To Crit Value Called By Crit Value Read Back Blood Gas Notified Time Potassium Carbon Dioxide Anion Gap BUN Creatinine Est GFR ( Amer) Est GFR (Non-Af Amer) Random Glucose Calcium Total Bilirubin AST ALT Alkaline Phosphatase Troponin I Total Protein Albumin Globulin Albumin/Globulin Ratio Free T4 Arterial Blood Potassium Urine Color Urine Clarity Urine pH Ur Specific [place] Urine Protein Urine Glucose (UA) Urine Ketones Urine Blood Urine Nitrate Urine Bilirubin Urine Urobilinogen Ur Leukocyte Esterase Urine RBC (Auto) Urine Microscopic WBC Ur Squamous Epith Cells Urine Bacteria Salicylates EKG/Cardiology Studies: Cardiology / EKG Studies 04/19/17 09:00 EKG [ELECTROCARDIOGRAM] DAILY Comment: Mode Of Transportation: Reason For Exam: paroxysmal A Fib Fingerstick Blood Sugar Results: 112 Critical Care Progress Note - Nutrition Nutrition: Nutrition Category Date Time Status Heart Healthy Diet [DIET] Diets 04/18/17 Dinner Active Assessment/Plan - Assessment and Plan (Free Text) Assessment: A/P PSVT, paroxysmal A Fib now sinus, hypokalemia improved, h/o thyroidectomy, anxiety - Continue meds - cardiology follow up - Follow up labs
[2017-04-19] MEDS: Digoxin 250 mcg (0.25 mg) Tab PO SCH (09:02)
[2017-04-19] MEDS: Metoprolol Succinate 100 mg XL Tab PO SCH (09:03)
[2017-04-19] MEDS: Enoxaparin 40 mg Syringe SC SCH (09:03)
[2017-04-19] MEDS: Timolol 0.25% Ophth SOLN OU SCH ×2 (09:03→17:06)
--- NOTE | 2017-04-19 09:41 | CARD ---
APPROVED REPORT EKG Measurement Heart [id number] <Conclusion> Sinus bradycardia with 1st degree AV block Septal infarct, age undetermined Abnormal ECG
--- NOTE | 2017-04-19 12:10 | CP.PCM.PN ---
Subjective - Date & Time of Evaluation Date of Evaluation: 04/19/17 Time of Evaluation: 08:00 - Subjective Subjective: Patient seen and examined at bedside, laying in bed in no acute distress. Has complaint of headache this AM. Patient reports she feels chest discomfort which worsens with palpation, but not pain. Denies SOB, palpitations, weakness, dizziness, nausea or vomiting. Tolerating PO diet, has normal urine and stool output. Objective - Vital Signs/Intake and Output Vital Signs (last 24 hours): Temp Pulse Resp BP Pulse Ox 98.1 F 55 L 12 151/83 H 99 04/19/17 08:00 04/19/17 10:00 04/19/17 10:00 04/19/17 10:00 04/19/17 10:00 Intake and Output: 04/19/17 04/19/17 06:59 18:59 Intake Total 220 500 Output Total 200 200 Balance 20 300 - Medications Medications: Current Medications Acetaminophen (Tylenol 325mg Tab) 650 mg PO Q6 PRN PRN Reason: Pain, moderate (4-7) Last Admin: 04/19/17 08:59 Dose: 650 mg Amiodarone HCl (Cordarone) 400 mg PO DAILY [facility] Last Admin: 04/19/17 09:01 Dose: 400 mg Aspirin (Ecotrin) 81 mg PO DAILY [facility] Last Admin: 04/19/17 09:02 Dose: 81 mg Atorvastatin Calcium (Lipitor) 20 mg PO DAILY [facility] Last Admin: 04/19/17 09:03 Dose: 20 mg Digoxin (Lanoxin) 0.25 mg PO DAILY [facility] Last Admin: 04/19/17 09:02 Dose: 0.25 mg Enoxaparin Sodium (Lovenox) 40 mg SC DAILY [facility] PRN Reason: Protocol Last Admin: 04/19/17 09:03 Dose: 40 mg Famotidine (Pepcid) 40 mg PO HS [facility] Last Admin: 04/18/17 21:03 Dose: 40 mg Latanoprost (Xalatan Opht) 1 drop OU HS [facility] Metoprolol Succinate (Toprol Xl) 100 mg PO DAILY [facility] Last Admin: 04/19/17 09:03 Dose: 100 mg Timolol Maleate (Timoptic 0.25% Ophth Soln) 1 drop OU BID [facility] Last Admin: 04/19/17 09:03 Dose: 1 drop Tramadol HCl (Ultram) 50 mg PO Q6 PRN PRN Reason: Pain, moderate (4-7) Zolpidem Tartrate (Ambien) 5 mg PO HS PRN PRN Reason: Insomnia Last Admin: 04/18/17 21:33 Dose: 5 mg - Labs Labs: 04/19/17 06:00 04/19/17 06:00 PT 11.2 Seconds (9.8-13.1) 04/18/17 15:00 INR 1.0 (0.9-1.2) 04/18/17 15:00 APTT 31.4 Seconds (25.6-37.1) 04/18/17 15:00 - Constitutional Appears: Non-toxic, No Acute Distress - Head Exam Head Exam: ATRAUMATIC, NORMOCEPHALIC - Eye Exam Eye Exam: EOMI, PERRL - ENT Exam ENT Exam: Mucous Membranes Moist - Neck Exam Neck Exam: Full ROM. absent: Lymphadenopathy - Respiratory Exam Respiratory Exam: Clear to Ausculation Bilateral, NORMAL BREATHING PATTERN - Cardiovascular Exam Cardiovascular Exam: REGULAR RHYTHM, +S1, +S2 - GI/Abdominal Exam GI & Abdominal Exam: Soft, Normal Bowel Sounds. absent: Distended, Tenderness - Extremities Exam Extremities Exam: Full ROM. absent: Calf Tenderness, Pedal Edema - Back Exam Back Exam: absent: CVA tenderness (L), CVA tenderness (R) - Neurological Exam Neurological Exam: Alert, Awake, CN II-XII Intact, Oriented x3 - Psychiatric Exam Psychiatric exam: Normal Affect, Normal Mood - Skin Skin Exam: Dry, Intact, Warm Assessment and Plan - Assessment and Plan (Free Text) Assessment: 72 yo F w PMHx of HTN, Afib, and HLD is admitted due to palpitations, headache, nausea, and vomiting due to SVT and paroxysmal Afib 1) Paroxysmal Afib -stable, chronic -EKG this AM sinus bradycardia with 1st degree AV block -Amiodarone 400mg PO Daily, Digoxin 0.25mg PO Daily per Dr. Khalil -continue with home (Metoprolol 100mg PO Daily, ASA 81mg PO Daily -CBC, CMP wityhin normal limits -f/u UCx 2) Chest Pain r/o ACS -resolved -serial Troponin neg x3 -BNP: 289 -EKG this AM sinus bradycardia with 1st degree AV block 3) HTN -controlled -Metoprolol 100mg PO Daily -Digoxin 0.25mg PO Daily -f/u BPs 4) HLD -Atorvastatin 20mg PO Daily 5) Elevated TSH -no hx of thyroid disease per patient -TSH 9.65 -FT4 1.26 -Endocrinology consult appreciated: Dr. Shea 6) DVT Prophylaxis -Lovenox 40mg SC Daily 7) Code Status -DNR/DNI per patient, will await legal documentation which patient asked family to bring in
--- NOTE | 2017-04-19 15:08 | CP.PCM.PN ---
Subjective - Date & Time of Evaluation Date of Evaluation: 04/19/17 Time of Evaluation: 12:30 - Subjective Subjective: FEELS MUCH BETTER NOW NO PALPITATIONS Objective - Vital Signs/Intake and Output Vital Signs (last 24 hours): Temp Pulse Resp BP Pulse Ox 98.3 F 53 L 18 150/74 97 04/19/17 12:00 04/19/17 12:00 04/19/17 12:00 04/19/17 12:00 04/19/17 12:00 Intake and Output: 04/19/17 04/19/17 06:59 18:59 Intake Total 220 800 Output Total 200 200 Balance 20 600 - Medications Medications: Current Medications Acetaminophen (Tylenol 325mg Tab) 650 mg PO Q6 PRN PRN Reason: Pain, moderate (4-7) Last Admin: 04/19/17 08:59 Dose: 650 mg Amiodarone HCl (Cordarone) 400 mg PO DAILY [facility] Last Admin: 04/19/17 09:01 Dose: 400 mg Aspirin (Ecotrin) 81 mg PO DAILY [facility] Last Admin: 04/19/17 09:02 Dose: 81 mg Atorvastatin Calcium (Lipitor) 20 mg PO DAILY [facility] Last Admin: 04/19/17 09:03 Dose: 20 mg Digoxin (Lanoxin) 0.25 mg PO DAILY [facility] Last Admin: 04/19/17 09:02 Dose: 0.25 mg Enoxaparin Sodium (Lovenox) 40 mg SC DAILY [facility] PRN Reason: Protocol Last Admin: 04/19/17 09:03 Dose: 40 mg Famotidine (Pepcid) 40 mg PO HS [facility] Last Admin: 04/18/17 21:03 Dose: 40 mg Latanoprost (Xalatan Opht) 1 drop OU HS [facility] Metoprolol Succinate (Toprol Xl) 100 mg PO DAILY [facility] Last Admin: 04/19/17 09:03 Dose: 100 mg Timolol Maleate (Timoptic 0.25% Ophth Soln) 1 drop OU BID [facility] Last Admin: 04/19/17 09:03 Dose: 1 drop Tramadol HCl (Ultram) 50 mg PO Q6 PRN PRN Reason: Pain, moderate (4-7) Zolpidem Tartrate (Ambien) 5 mg PO HS PRN PRN Reason: Insomnia Last Admin: 04/18/17 21:33 Dose: 5 mg - Labs Labs: 04/19/17 06:00 04/19/17 06:00 PT 11.2 Seconds (9.8-13.1) 04/18/17 15:00 INR 1.0 (0.9-1.2) 04/18/17 15:00 APTT 31.4 Seconds (25.6-37.1) 04/18/17 15:00 - Respiratory Exam Respiratory Exam: Clear to Ausculation Bilateral - Cardiovascular Exam Cardiovascular Exam: REGULAR RHYTHM, +S1, +S2 - Extremities Exam Extremities Exam: Normal Inspection - Additional Findings Additional findings: EKG NSR TROPONIN NEGATIVE X 3 K+ 3.9 Assessment and Plan - Assessment and Plan (Free Text) Assessment: S/P SYMPTOMATIC SVT EPISODE HISTORY OF ATRIAL FIBRILLATION HYPERTENSION HYPERLIPIDEMIA Plan: CONTINUE AMIODARONE 400 MGS PO DAILY, DIGOXIN, METOPROLOL, ATORVASTATIN DIGOXIN LEVEL IN AM OK TO TRANSFER TO 4N ON TELEMETRY
[2017-04-19] MEDS: Latanoprost 0.005% Opht SOUTION OU SCH (22:46)
[2017-04-20 06:46] LABS: HEMOGLOBIN 13.2 g/dL (12.0-16.0); MEAN CORPUSCULAR HEMOGLOBIN 28.3 pg (27.0-31.0); MEAN CORPUSCULAR HGB CONC 33.7 g/dL (33.0-37.0); RBC 4.66 Mil/uL (3.80-5.20); RED CELL DISTRIBUTION WIDTH 14.5 % (11.5-14.5); WHITE BLOOD COUNT 5.8 K/uL (4.8-10.8)
[2017-04-20 06:51] LABS: CALCIUM 9.2 mg/dL (8.4-10.2)
[2017-04-20 07:06] LABS: T4 8.88 ug/dl (5.5-11.0)
--- NOTE | 2017-04-20 07:34 | CP.CCUPN ---
CCU Subjective - Physician Review Events Since Last Encounter (Free Text): 04/20/17 07:34 Patient awake, no distress, no fever, no chest pain, follow commands, no pressors, events reviewed CCU Objective - Vital Signs / Intake & Output Vital Signs (Last 4 hours): Vital Signs Temp Pulse Resp BP Pulse Ox 04/20/17 06:00 52 L 14 159/79 H 94 L 04/20/17 04:00 97.5 F L 51 L 12 127/73 96 Intake and Output (Last 8hrs): Intake & Output 04/19/17 04/20/17 04/20/17 22:59 06:59 14:59 Intake Total 267 100 Output Total 500 200 Balance -233 -100 Intake: IV 10 Intake, Piggyback 7 Oral 250 100 Output: Urine 500 200 Urine, Voided 500 200 - Physical Exam Head: Positive for: Normocephalic Pupils: Positive for: PERRL Extroacular Muscles: Positive for: EOMI Conjunctiva: Positive for: Normal Ears: Positive for: Normal Mouth: Positive for: Moist Mucous Membranes Pharnyx: Positive for: Normal Nose (Internal): Positive for: Normal Inspection Neck: Negative for: Meningeal Signs, JVD, Lymphadenopathy, Bruit Respiratory/Chest: Positive for: Clear to Auscultation Cardiovascular: Positive for: Regular Rate and Rhythm. Negative for: Murmurs, Rub Abdomen: Positive for: Normal Bowel Sounds. Negative for: Tenderness, Distention Lower Extremity: Positive for: NORMAL PULSES. Negative for: Edema, CALF TENDERNESS, Cyanosis Neurological: Positive for: GCS=15, CN II-XII Intact, Speech Normal, Motor Func Grossly Intact Skin: Positive for: Warm. Negative for: Rashes - Medications Active Medications: Active Medications Generic Name Dose Route Start Last Admin Trade Name Freq PRN Reason Stop Dose Admin Acetaminophen 650 mg 04/19/17 08:57 04/19/17 22:44 Tylenol 325mg Tab PO 650 mg Q6 PRN Administration Pain, moderate (4-7) Amiodarone HCl 400 mg 04/19/17 09:00 04/19/17 09:01 Cordarone PO 400 mg DAILY KIRSTEN Administration Aspirin 81 mg 04/19/17 09:00 04/19/17 09:02 Ecotrin PO 81 mg DAILY KIRSTEN Administration Atorvastatin Calcium 20 mg 04/19/17 09:00 04/19/17 09:03 Lipitor PO 20 mg DAILY KIRSTEN Administration Digoxin 0.25 mg 04/19/17 09:00 04/19/17 09:02 Lanoxin PO 0.25 mg DAILY KIRSTEN Administration Enoxaparin Sodium 40 mg 04/19/17 09:00 04/19/17 09:03 Lovenox SC 40 mg DAILY KIRSTEN Administration Protocol Famotidine 40 mg 04/18/17 22:00 04/19/17 22:42 Pepcid PO 40 mg HS KIRSTEN Administration Latanoprost 1 drop 04/19/17 22:00 04/19/17 22:46 Xalatan Opht OU 1 drop HS KIRSTEN Administration Metoprolol Succinate 100 mg 04/19/17 09:00 04/19/17 09:03 Toprol Xl PO 100 mg DAILY KIRSTEN Administration Timolol Maleate 1 drop 04/19/17 09:00 04/19/17 17:06 Timoptic 0.25% Ophth Soln OU 1 drop BID KIRSTEN Administration Tramadol HCl 50 mg 04/18/17 18:42 Ultram PO Q6 PRN Pain, moderate (4-7) Zolpidem Tartrate 5 mg 04/18/17 18:29 04/19/17 22:41 Ambien PO 5 mg HS PRN Administration Insomnia - Patient Studies Lab Studies: Lab Studies 04/20/17 04/20/17 04/20/17 Range/Units 06:00 06:00 06:00 WBC 5.8 (4.8-10.8) K/uL RBC 4.66 (3.80-5.20) Mil/uL Hgb 13.2 (12.0-16.0) g/dL Hct 39.1 (34.0-47.0) % MCV 84.0 (81.0-99.0) fl MCH 28.3 (27.0-31.0) pg MCHC 33.7 (33.0-37.0) g/dL RDW 14.5 (11.5-14.5) % Plt Count 141 (130-400) K/uL Sodium 141 (132-148) mmol/l Potassium 4.1 (3.6-5.0) MMOL/L Chloride 106 (98-107) mmol/L Carbon Dioxide 29 (22-30) mmol/L Anion Gap 11 (10-20) BUN 13 (7-17) mg/dl Creatinine 1.1 (0.7-1.2) mg/dL Est GFR ( Amer) 59 Est GFR (Non-Af Amer) 49 Random Glucose 91 (65-105) mg/dL Calcium 9.2 (8.4-10.2) mg/dL Free T4 1.28 (0.78-2.19) ng/dL Thyroxine (T4) 8.88 (5.5-11.0) ug/dl TSH 3rd Generation 8.02 H (0.46-4.68) mIU/ML Laboratory Results - last 24 hr 04/20/17 04/20/17 04/20/17 06:00 06:00 06:00 WBC 5.8 RBC 4.66 Hgb 13.2 Hct 39.1 MCV 84.0 MCH 28.3 MCHC 33.7 RDW 14.5 Plt Count 141 Sodium 141 Potassium 4.1 Chloride 106 Carbon Dioxide 29 Anion Gap 11 BUN 13 Creatinine 1.1 Est GFR ( Amer) 59 Est GFR (Non-Af Amer) 49 Random Glucose 91 Calcium 9.2 Free T4 1.28 Thyroxine (T4) 8.88 TSH 3rd Generation 8.02 H EKG/Cardiology Studies: Cardiology / EKG Studies 04/19/17 09:00 EKG [ELECTROCARDIOGRAM] DAILY Comment: Mode Of Transportation: Reason For Exam: paroxysmal A Fib Fingerstick Blood Sugar Results: 112 Critical Care Progress Note - Nutrition Nutrition: Nutrition Category Date Time Status Heart Healthy Diet [DIET] Diets 04/20/17 Breakfast Active Assessment/Plan - Assessment and Plan (Free Text) Assessment: A/P PSVT, paroxysmal A Fib now sinus, hypokalemia improved, h/o thyroidectomy, anxiety - Continue meds - cardiology follow up - Follow up labs
[2017-04-20] MEDS: Timolol 0.25% Ophth SOLN OU SCH ×2 (08:13→16:15)
[2017-04-20] MEDS: Metoprolol Succinate 100 mg XL Tab PO SCH (08:13)
[2017-04-20] MEDS: Enoxaparin 40 mg Syringe SC SCH (08:13)
[2017-04-20] MEDS: Digoxin 250 mcg (0.25 mg) Tab PO SCH (08:14)
--- NOTE | 2017-04-20 14:19 | CP.PCM.PN ---
Subjective - Date & Time of Evaluation Date of Evaluation: 04/20/17 Time of Evaluation: 13:00 - Subjective Subjective: NO FURTHER PALPITATIONS OR LIGHTHEADEDNESS FEELS MUCH BETTER HAS A MILD HEADACHE Objective - Vital Signs/Intake and Output Vital Signs (last 24 hours): Temp Pulse Resp BP Pulse Ox 97.8 F 52 L 15 174/67 H 97 04/20/17 12:09 04/20/17 12:09 04/20/17 12:09 04/20/17 12:09 04/20/17 12:09 Intake and Output: 04/20/17 04/20/17 06:59 18:59 Intake Total 310 390 Output Total 500 Balance -190 390 - Medications Medications: Current Medications Acetaminophen (Tylenol 325mg Tab) 650 mg PO Q6 PRN PRN Reason: Pain, moderate (4-7) Last Admin: 04/19/17 22:44 Dose: 650 mg Amiodarone HCl (Cordarone) 400 mg PO DAILY [facility]S [facility]CLUDE 234 BEDS AT THE [facility] Last Admin: 04/20/17 08:11 Dose: 400 mg Aspirin (Ecotrin) 81 mg PO DAILY [facility]S INCLUDE 234 BEDS AT THE [facility] Last Admin: 04/20/17 08:12 Dose: 81 mg Atorvastatin Calcium (Lipitor) 20 mg PO DAILY [facility]S INCLUDE 234 BEDS AT THE [facility] Last Admin: 04/20/17 08:13 Dose: 20 mg Digoxin (Lanoxin) 0.25 mg PO DAILY [facility]S [facility]CLUDE 234 BEDS AT THE [facility] Last Admin: 04/20/17 08:14 Dose: 0.25 mg Enoxaparin Sodium (Lovenox) 40 mg SC DAILY [facility]S [facility]CLUDE 234 BEDS AT THE [facility] PRN Reason: Protocol Last Admin: 04/20/17 08:13 Dose: 40 mg Famotidine (Pepcid) 40 mg PO HS COUNTS INCLUDE 234 BEDS AT THE [facility] Last Admin: 04/19/17 22:42 Dose: 40 mg Latanoprost (Xalatan Opht) 1 drop OU HS COUNTS INCLUDE 234 BEDS AT THE [facility] Last Admin: 04/19/17 22:46 Dose: 1 drop Metoprolol Succinate (Toprol Xl) 100 mg PO DAILY [facility]S INCLUDE 234 BEDS AT THE [facility] Last Admin: 04/20/17 08:13 Dose: 100 mg Timolol Maleate (Timoptic 0.25% Ophth Soln) 1 drop OU BID COUNTS INCLUDE 234 BEDS AT THE [facility] Last Admin: 04/20/17 08:13 Dose: 1 drop Tramadol HCl (Ultram) 50 mg PO Q6 PRN PRN Reason: Pain, moderate (4-7) Zolpidem Tartrate (Ambien) 5 mg PO HS PRN PRN Reason: Insomnia Last Admin: 04/19/17 22:41 Dose: 5 mg - Labs Labs: 04/20/17 06:00 04/20/17 06:00 PT 11.2 Seconds (9.8-13.1) 04/18/17 15:00 INR 1.0 (0.9-1.2) 04/18/17 15:00 APTT 31.4 Seconds (25.6-37.1) 04/18/17 15:00 - Respiratory Exam Respiratory Exam: Clear to Ausculation Bilateral - Cardiovascular Exam Cardiovascular Exam: REGULAR RHYTHM, +S1, +S2 - Extremities Exam Extremities Exam: Normal Inspection - Additional Findings 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
--- NOTE | 2017-04-20 15:32 | CP.PCM.PN ---
Subjective - Date & Time of Evaluation Date of Evaluation: 04/20/17 Time of Evaluation: 09:00 - Subjective Subjective: Patient seen and examined at bedside in ICU. She is lying in bed and appears in no acute distress. HR has remained stable in 50s with current treatments. She denies chest pain, palpitations, diaphoresis, SOB, abdominal pain, nausea or vomiting. She denies any history of thyroid disease in the past. Patient is accustomed to multiple cups of coffee in AM which she has not had during admission and reports mild headache which has improved with acetaminophen. Objective - Vital Signs/Intake and Output Vital Signs (last 24 hours): Temp Pulse Resp BP Pulse Ox 97.8 F 54 L 15 160/100 H 97 04/20/17 12:09 04/20/17 15:18 04/20/17 12:09 04/20/17 15:18 04/20/17 12:09 Intake and Output: 04/20/17 04/20/17 06:59 18:59 Intake Total 310 390 Output Total 500 Balance -190 390 - Medications Medications: Current Medications Acetaminophen (Tylenol 325mg Tab) 650 mg PO Q6 PRN PRN Reason: Pain, moderate (4-7) Last Admin: 04/20/17 15:11 Dose: 650 mg Amiodarone HCl (Cordarone) 400 mg PO DAILY [facility] Last Admin: 04/20/17 08:11 Dose: 400 mg Amlodipine Besylate (Norvasc) 2.5 mg PO DAILY [facility] Last Admin: 04/20/17 15:18 Dose: 2.5 mg Aspirin (Ecotrin) 81 mg PO DAILY [facility] Last Admin: 04/20/17 08:12 Dose: 81 mg Atorvastatin Calcium (Lipitor) 20 mg PO DAILY [facility] Last Admin: 04/20/17 08:13 Dose: 20 mg Digoxin (Lanoxin) 0.125 mg PO DAILY [facility] Enoxaparin Sodium (Lovenox) 40 mg SC DAILY [facility] PRN Reason: Protocol Last Admin: 04/20/17 08:13 Dose: 40 mg Famotidine (Pepcid) 40 mg PO HS [facility] Last Admin: 04/19/17 22:42 Dose: 40 mg Latanoprost (Xalatan Opht) 1 drop OU HS [facility] Last Admin: 04/19/17 22:46 Dose: 1 drop Metoprolol Succinate (Toprol Xl) 100 mg PO DAILY [facility] Last Admin: 04/20/17 08:13 Dose: 100 mg Timolol Maleate (Timoptic 0.25% Ophth Soln) 1 drop OU BID [facility] Last Admin: 04/20/17 08:13 Dose: 1 drop Tramadol HCl (Ultram) 50 mg PO Q6 PRN PRN Reason: Pain, moderate (4-7) Zolpidem Tartrate (Ambien) 5 mg PO HS PRN PRN Reason: Insomnia Last Admin: 04/19/17 22:41 Dose: 5 mg - Labs Labs: 04/20/17 06:00 04/20/17 06:00 PT 11.2 Seconds (9.8-13.1) 04/18/17 15:00 INR 1.0 (0.9-1.2) 04/18/17 15:00 APTT 31.4 Seconds (25.6-37.1) 04/18/17 15:00 - Constitutional Appears: Non-toxic, No Acute Distress - Head Exam Head Exam: ATRAUMATIC, NORMAL INSPECTION, NORMOCEPHALIC - Eye Exam Eye Exam: EOMI, PERRL - ENT Exam ENT Exam: Mucous Membranes Moist - Respiratory Exam Respiratory Exam: Clear to Ausculation Bilateral, NORMAL BREATHING PATTERN. absent: Rhonchi, Wheezes, Respiratory Distress - Cardiovascular Exam Cardiovascular Exam: Bradycardia, REGULAR RHYTHM, +S1, +S2 - GI/Abdominal Exam GI & Abdominal Exam: Soft, Normal Bowel Sounds. absent: Distended, Tenderness - Extremities Exam Extremities Exam: absent: Calf Tenderness, Pedal Edema - Neurological Exam Neurological Exam: Alert, Awake, CN II-XII Intact, Oriented x3 - Psychiatric Exam Psychiatric exam: Normal Affect, Normal Mood - Skin Skin Exam: Dry, Warm Assessment and Plan - Assessment and Plan (Free Text) Assessment: 72 y/o F w PMH including HTN, Afib, and Hyperlipidemia referred by his area intelligence technician due to palpitations, headache, nausea, and vomiting due to SVT and paroxysmal Afib. Plan: S/P Symptomatic SVT and Afib -Now in sinus rhythm -Amiodarone 400mg PO Daily, Digoxin 0.25mg PO Daily per Dr. Khalil -continue with home (Metoprolol 100mg PO Daily, ASA 81mg PO Daily) -Stable for transfer to telemetry for cardiac monitoring -Digoxin level 1.8 Chest Pain r/o ACS -ACS ruled out -serial Troponin neg x3 -BNP: 289 -EKG this AM sinus bradycardia with 1st degree AV block HTN -controlled -Metoprolol 100mg PO Daily -Digoxin 0.25mg PO Daily -f/u BPs Elevated TSH -no hx of thyroid disease per patient -TSH 9.65 -FT4 1.26 -Endocrinology consult appreciated: Dr. Shea HLD -Atorvastatin 20mg PO Daily DVT Prophylaxis -Lovenox 40mg SC Daily Code Status -DNR/DNI per patient, will await legal documentation which patient asked family to bring in
[2017-04-20] MEDS: Latanoprost 0.005% Opht SOUTION OU SCH (21:13)
[2017-04-21 00:42] VITALS: RESP 18
[2017-04-21] MEDS ORDERED: Levothyroxine 25 MCG TAB PO SCH (07:30)
[2017-04-21 08:39] VITALS: BP 157/92; TEMP 97.5; O2SAT 99
[2017-04-21] MEDS ORDERED: Digoxin 125 mcg (0.125 mg) Tab PO SCH (09:00)
[2017-04-21 09:42] VITALS: PULSE 50
[2017-04-21] MEDS: Metoprolol Succinate 100 mg XL Tab PO SCH (09:42)
[2017-04-21] MEDS: Enoxaparin 40 mg Syringe SC SCH (09:42)
[2017-04-21] MEDS: Timolol 0.25% Ophth SOLN OU SCH (09:42)
[2017-04-21 09:44] VITALS: PULSE 59
--- NOTE | 2017-04-21 09:51 | CP.PCM.PN ---
Subjective - Date & Time of Evaluation Date of Evaluation: 04/21/17 Time of Evaluation: 08:00 - Subjective Subjective: NO COMPLAINTS NO CHEST PAIN, PALPITATIONS OR SOB WAS WALKING AROUND NURSES STATION WITHOUT PROBLEMS Objective - Vital Signs/Intake and Output Vital Signs (last 24 hours): Temp Pulse Resp BP Pulse Ox 97.5 F L 59 L 18 157/92 H 99 04/21/17 08:39 04/21/17 09:42 04/21/17 08:39 04/21/17 09:42 04/21/17 08:39 - Medications Medications: Current Medications Acetaminophen (Tylenol 325mg Tab) 650 mg PO Q6 PRN PRN Reason: Pain, moderate (4-7) Last Admin: 04/20/17 15:11 Dose: 650 mg Amiodarone HCl (Cordarone) 400 mg PO DAILY [facility] Last Admin: 04/21/17 09:40 Dose: 400 mg Amlodipine Besylate (Norvasc) 2.5 mg PO DAILY [facility] Last Admin: 04/21/17 09:42 Dose: 2.5 mg Aspirin (Ecotrin) 81 mg PO DAILY [facility] Last Admin: 04/21/17 09:39 Dose: 81 mg Atorvastatin Calcium (Lipitor) 20 mg PO DAILY [facility] Last Admin: 04/21/17 09:41 Dose: 20 mg Digoxin (Lanoxin) 0.125 mg PO DAILY [facility] Last Admin: 04/21/17 09:40 Dose: Not Given Enoxaparin Sodium (Lovenox) 40 mg SC DAILY [facility] PRN Reason: Protocol Last Admin: 04/21/17 09:42 Dose: 40 mg Famotidine (Pepcid) 40 mg PO HS [facility] Last Admin: 04/20/17 21:13 Dose: 40 mg Latanoprost (Xalatan Opht) 1 drop OU HS [facility] Last Admin: 04/20/17 21:13 Dose: 1 drop Levothyroxine Sodium (Synthroid) 25 mcg PO ACB [facility] Last Admin: 04/21/17 09:42 Dose: 25 mcg Metoprolol Succinate (Toprol Xl) 100 mg PO DAILY [facility] Last Admin: 04/21/17 09:42 Dose: 100 mg Timolol Maleate (Timoptic 0.25% Ophth Soln) 1 drop OU BID [facility] Last Admin: 04/21/17 09:42 Dose: 1 drop Tramadol HCl (Ultram) 50 mg PO Q6 PRN PRN Reason: Pain, moderate (4-7) Zolpidem Tartrate (Ambien) 5 mg PO HS PRN PRN Reason: Insomnia Last Admin: 04/20/17 21:15 Dose: 5 mg - Labs Labs: 04/20/17 06:00 04/20/17 06:00 PT 11.2 Seconds (9.8-13.1) 04/18/17 15:00 INR 1.0 (0.9-1.2) 04/18/17 15:00 APTT 31.4 Seconds (25.6-37.1) 04/18/17 15:00 - Respiratory Exam Respiratory Exam: Clear to Ausculation Bilateral - Cardiovascular Exam Cardiovascular Exam: REGULAR RHYTHM, +S2 - Extremities Exam Extremities Exam: Normal Inspection - Additional Findings 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
--- NOTE | 2017-04-21 10:55 | CP.PCM.DIS ---
<Meena Diallo - Last Filed: 04/21/17 15:39> Provider - Provider Date of Admission: 04/18/17 16:08 Attending physician: Adan Craig MD Primary care physician: Dr. Craig Consults: Dr. Khalil-cardiology Time Spent in preparation of Discharge (in minutes): 30 Diagnosis - Discharge Diagnosis (1) Supraventricular tachycardia Status: Resolved (2) Atrial fibrillation with rapid ventricular response Status: Chronic Priority: Medium (3) Elevated TSH Status: Acute Priority: Medium Hospital Course - Lab Results Lab Results: Micro Results 04/18/17 16:20 Urine,Clean Catch Urine Culture - Final 10-50,000 CFU/ML. MULTIPLE SPECIES. PROBABLE CONTAMINATION. Most Recent Lab Values WBC 5.8 K/uL (4.8-10.8) 04/20/17 06:00 RBC 4.66 Mil/uL (3.80-5.20) 04/20/17 06:00 Hgb 13.2 g/dL (12.0-16.0) 04/20/17 06:00 Hct 39.1 % (34.0-47.0) 04/20/17 06:00 MCV 84.0 fl (81.0-99.0) 04/20/17 06:00 MCH 28.3 pg (27.0-31.0) 04/20/17 06:00 MCHC 33.7 g/dL (33.0-37.0) 04/20/17 06:00 RDW 14.5 % (11.5-14.5) 04/20/17 06:00 Plt Count 141 K/uL (130-400) 04/20/17 06:00 MPV 8.0 fl (7.2-11.7) 04/19/17 06:00 Neut % (Auto) 63.9 % (50.0-75.0) 04/19/17 06:00 Lymph % (Auto) 27.6 % (20.0-40.0) 04/19/17 06:00 [place] % (Auto) 6.9 % (0.0-10.0) 04/19/17 06:00 Eos % (Auto) 1.3 % (0.0-4.0) 04/19/17 06:00 Baso % (Auto) 0.3 % (0.0-2.0) 04/19/17 06:00 Neut # 4.4 K/uL (1.8-7.0) 04/19/17 06:00 Lymph # 1.9 K/uL (1.0-4.3) 04/19/17 06:00 [place] # 0.5 K/uL (0.0-0.8) 04/19/17 06:00 Eos # 0.1 K/uL (0.0-0.7) 04/19/17 06:00 Baso # 0.0 K/uL (0.0-0.2) 04/19/17 06:00 PT 11.2 Seconds (9.8-13.1) 04/18/17 15:00 INR 1.0 (0.9-1.2) 04/18/17 15:00 APTT 31.4 Seconds (25.6-37.1) 04/18/17 15:00 D-Dimer, Quantitative 140 ng/mlDDU (0-230) 04/18/17 15:30 pCO2 19 mm/Hg (35-45) L* 04/18/17 16:15 pO2 174 mm/Hg (80-100) H 04/18/17 16:15 HCO3 24.6 mmol/L (21-28) 04/18/17 16:15 ABG pH 7.60 (7.35-7.45) H 04/18/17 16:15 ABG Total CO2 19.3 mmol/L (22-28) L 04/18/17 16:15 ABG O2 Saturation 99.8 % (95-98) H 04/18/17 16:15 ABG Base Excess -0.5 mmol/L (-2.0-3.0) 04/18/17 16:15 Darrell Test Yes 04/18/17 16:15 ABG Potassium 3.1 mmol/L (3.6-5.2) L 04/18/17 16:15 A-a O2 Difference 30.0 mm/Hg 04/18/17 16:15 Sodium 140.0 mmol/L (132-148) 04/18/17 16:15 Chloride 114.0 mmol/L (98-107) H 04/18/17 16:15 Glucose 103 mg/dL (65-105) 04/18/17 16:15 Lactate 1.4 mmol/L (0.7-2.1) 04/18/17 16:15 FiO2 32.0 % 04/18/17 16:15 Crit Value Called To Dr fady batres 04/18/17 16:15 Crit Value Called By Rt 04/18/17 16:15 Crit Value Read Back Y 04/18/17 16:15 Blood Gas Notified Time 1620 04/18/17 16:15 Sodium 141 mmol/l (132-148) 04/20/17 06:00 Potassium 4.1 MMOL/L (3.6-5.0) 04/20/17 06:00 Chloride 106 mmol/L (98-107) 04/20/17 06:00 Carbon Dioxide 29 mmol/L (22-30) 04/20/17 06:00 Anion Gap 11 (10-20) 04/20/17 06:00 BUN 13 mg/dl (7-17) 04/20/17 06:00 Creatinine 1.1 mg/dL (0.7-1.2) 04/20/17 06:00 Est GFR ( Amer) 59 04/20/17 06:00 Est GFR (Non-Af Amer) 49 04/20/17 06:00 POC Glucose (mg/dL) 112 mg/dL (65-110) H 04/18/17 14:49 Random Glucose 91 mg/dL (65-105) 04/20/17 06:00 Calcium 9.2 mg/dL (8.4-10.2) 04/20/17 06:00 Total Bilirubin 1.5 mg/dl (0.2-1.3) H 04/19/17 06:00 AST 19 U/L (14-36) 04/19/17 06:00 ALT 22 U/L (9-52) 04/19/17 06:00 Alkaline Phosphatase 76 U/L (38-126) 04/19/17 06:00 Troponin I 0.0700 ng/mL (0.00-0.120) 04/19/17 06:00 NT-Pro-B Natriuret Pep 289 pg/ml (0-900) 04/18/17 15:20 Total Protein 6.1 G/DL (6.3-8.2) L 04/19/17 06:00 Albumin 3.8 g/dL (3.5-5.0) 04/19/17 06:00 Globulin 2.3 gm/dL (2.2-3.9) 04/19/17 06:00 Albumin/Globulin Ratio 1.6 (1.0-2.1) 04/19/17 06:00 Free T4 1.28 ng/dL (0.78-2.19) 04/20/17 06:00 Thyroxine (T4) 8.88 ug/dl (5.5-11.0) 04/20/17 06:00 TSH 3rd Generation 8.02 mIU/ML (0.46-4.68) H 04/20/17 06:00 Arterial Blood Potassium 3.1 mmol/L (3.6-5.2) L 04/18/17 16:15 Urine Color Straw (YELLOW) 04/18/17 16:20 Urine Clarity Clear (Clear) 04/18/17 16:20 Urine pH 7.0 (5.0-8.0) 04/18/17 16:20 Ur Specific [place] 1.006 (1.003-1.030) 04/18/17 16:20 Urine Protein 30 mg/dL (NEGATIVE) 04/18/17 16:20 Urine Glucose (UA) Neg mg/dL (Normal) 04/18/17 16:20 Urine Ketones Trace mg/dL (NEGATIVE) 04/18/17 16:20 Urine Blood Negative (NEGATIVE) 04/18/17 16:20 Urine Nitrate Negative (NEGATIVE) 04/18/17 16:20 Urine Bilirubin Negative (NEGATIVE) 04/18/17 16:20 Urine Urobilinogen 0.2-1.0 mg/dL (0.2-1.0) 04/18/17 16:20 Ur Leukocyte Esterase Trace Gerardo/uL (Negative) 04/18/17 16:20 Urine RBC (Auto) 3 /hpf (0-3) 04/18/17 16:20 Urine Microscopic WBC 3 /hpf (0-5) 04/18/17 16:20 Ur Squamous Epith Cells 5 /hpf (0-5) 04/18/17 16:20 Urine Bacteria Rare (<OCC) 04/18/17 16:20 Digoxin 1.8 ng/mL (0.8-2.0) 04/20/17 06:00 Salicylates < 1.0 mg/dl 04/18/17 19:15 - Hospital Course Hospital Course: 72 yr old F admitted for admitted due to palpitations, headache, nausea, and vomiting due to SVT and paroxysmal Afib with PMHx of HTN, Afib, and HLD. Patients symptoms resolved, heart rate and rhythm normalized after medical treatment with Adenosine and Digoxin, Amiodarone dose was increased and addition of Norvasc, patient was observed in ICU. Patient was discharged stable with instructions to discontinue Amiodarone 200mg PO daily, Start Amiodarone 400mg PO daily, Digoxin 0.125mg PO daily, Norvasc 2.5mg PO daily, Levothyroxine 25mcg PO daily, Continue rest of home meds, follow up with placement manager Dr. Khalil within 1 week, follow up with PMD Dr. Craig within 1 week, follow up with wic site coordinator Candi Khan within 1 week. - Date & Time of H&P Date of H&P: 05/01/17 Time of H&P: 20:15 Discharge Exam - Head Exam Head Exam: ATRAUMATIC, NORMAL INSPECTION, NORMOCEPHALIC - Eye Exam Eye Exam: EOMI, Normal appearance, PERRL - ENT Exam ENT Exam: Mucous Membranes Moist - Neck Exam Neck exam: Full Rom - Respiratory Exam Respiratory Exam: Clear to PA & Lateral, NORMAL BREATHING PATTERN - Cardiovascular Exam Cardiovascular Exam: REGULAR RHYTHM, +S1, +S2 - GI/Abdominal Exam GI & Abdominal Exam: Normal Bowel Sounds, Soft. absent: Distended, Tenderness - Extremities Exam Extremities exam: full ROM (no calf tenderness, no pedal edema) - Back Exam Back exam: absent: CVA tenderness (L), CVA tenderness (R) - Neurological Exam Neurological exam: Alert, CN II-XII Intact, Oriented x3 - Psychiatric Exam Psychiatric exam: Normal Affect, Normal Mood - Skin Skin Exam: Dry, Intact, Warm Discharge Plan - Discharge Medications Prescriptions: Amiodarone HCl 400 mg PO DAILY #30 tablet amLODIPine [Norvasc] 2.5 mg PO DAILY #30 tab Digoxin [Lanoxin] 0.125 mg PO DAILY #30 tab Levothyroxine [Synthroid] 25 mcg PO ACB #30 tab - Follow Up Plan Condition: GUARDED Disposition: HOME/ ROUTINE Instructions: Atrial Fibrillation (DC), Heart Healthy Diet (DC), Hypothyroidism (DC), DASH Eating Plan (DC) Additional Instructions: -Discontinue Amiodarone 200mg PO daily -Start Amiodarone 400mg PO daily, Digoxin 0.125mg PO daily, Norvasc 2.5mg PO daily, Levothyroxine 25mcg PO daily -Continue rest of home meds -Take medications as prescribed -Follow up with placement manager Dr. Khalil within 1 week -Follow up with PMD Dr. Craig within 1 week -Follow up with wic site coordinator Candi Khan within 1 week Referrals: Candi Shea MD [Medical Doctor] - Adan Craig MD [Staff Provider] - Baltazar Khalil MD [Staff Provider] - <Adan Craig - Last Filed: 04/23/17 06:42> Provider - Provider Date of Admission: 04/18/17 16:08 Attending physician: Adan Craig MD Hospital Course - Lab Results Lab Results: Micro Results 04/20/17 14:28 Nose MRSA Culture (Admit) - Final MRSA NOT DETECTED 04/18/17 16:20 Urine,Clean Catch Urine Culture - Final 10-50,000 CFU/ML. MULTIPLE SPECIES. PROBABLE CONTAMINATION. Most Recent Lab Values WBC 5.8 K/uL (4.8-10.8) 04/20/17 06:00 RBC 4.66 Mil/uL (3.80-5.20) 04/20/17 06:00 Hgb 13.2 g/dL (12.0-16.0) 04/20/17 06:00 Hct 39.1 % (34.0-47.0) 04/20/17 06:00 MCV 84.0 fl (81.0-99.0) 04/20/17 06:00 MCH 28.3 pg (27.0-31.0) 04/20/17 06:00 MCHC 33.7 g/dL (33.0-37.0) 04/20/17 06:00 RDW 14.5 % (11.5-14.5) 04/20/17 06:00 Plt Count 141 K/uL (130-400) 04/20/17 06:00 MPV 8.0 fl (7.2-11.7) 04/19/17 06:00 Neut % (Auto) 63.9 % (50.0-75.0) 04/19/17 06:00 Lymph % (Auto) 27.6 % (20.0-40.0) 04/19/17 06:00 [place] % (Auto) 6.9 % (0.0-10.0) 04/19/17 06:00 Eos % (Auto) 1.3 % (0.0-4.0) 04/19/17 06:00 Baso % (Auto) 0.3 % (0.0-2.0) 04/19/17 06:00 Neut # 4.4 K/uL (1.8-7.0) 04/19/17 06:00 Lymph # 1.9 K/uL (1.0-4.3) 04/19/17 06:00 [place] # 0.5 K/uL (0.0-0.8) 04/19/17 06:00 Eos # 0.1 K/uL (0.0-0.7) 04/19/17 06:00 Baso # 0.0 K/uL (0.0-0.2) 04/19/17 06:00 PT 11.2 Seconds (9.8-13.1) 04/18/17 15:00 INR 1.0 (0.9-1.2) 04/18/17 15:00 APTT 31.4 Seconds (25.6-37.1) 04/18/17 15:00 D-Dimer, Quantitative 140 ng/mlDDU (0-230) 04/18/17 15:30 pCO2 19 mm/Hg (35-45) L* 04/18/17 16:15 pO2 174 mm/Hg (80-100) H 04/18/17 16:15 HCO3 24.6 mmol/L (21-28) 04/18/17 16:15 ABG pH 7.60 (7.35-7.45) H 04/18/17 16:15 ABG Total CO2 19.3 mmol/L (22-28) L 04/18/17 16:15 ABG O2 Saturation 99.8 % (95-98) H 04/18/17 16:15 ABG Base Excess -0.5 mmol/L (-2.0-3.0) 04/18/17 16:15 Darrell Test Yes 04/18/17 16:15 ABG Potassium 3.1 mmol/L (3.6-5.2) L 04/18/17 16:15 A-a O2 Difference 30.0 mm/Hg 04/18/17 16:15 Sodium 140.0 mmol/L (132-148) 04/18/17 16:15 Chloride 114.0 mmol/L (98-107) H 04/18/17 16:15 Glucose 103 mg/dL (65-105) 04/18/17 16:15 Lactate 1.4 mmol/L (0.7-2.1) 04/18/17 16:15 FiO2 32.0 % 04/18/17 16:15 Crit Value Called To Dr fady batres 04/18/17 16:15 Crit Value Called By Rt 04/18/17 16:15 Crit Value Read Back Y 04/18/17 16:15 Blood Gas Notified Time 1620 04/18/17 16:15 Sodium 141 mmol/l (132-148) 04/20/17 06:00 Potassium 4.1 MMOL/L (3.6-5.0) 04/20/17 06:00 Chloride 106 mmol/L (98-107) 04/20/17 06:00 Carbon Dioxide 29 mmol/L (22-30) 04/20/17 06:00 Anion Gap 11 (10-20) 04/20/17 06:00 BUN 13 mg/dl (7-17) 04/20/17 06:00 Creatinine 1.1 mg/dL (0.7-1.2) 04/20/17 06:00 Est GFR ( Amer) 59 04/20/17 06:00 Est GFR (Non-Af Amer) 49 04/20/17 06:00 POC Glucose (mg/dL) 112 mg/dL (65-110) H 04/18/17 14:49 Random Glucose 91 mg/dL (65-105) 04/20/17 06:00 Calcium 9.2 mg/dL (8.4-10.2) 04/20/17 06:00 Total Bilirubin 1.5 mg/dl (0.2-1.3) H 04/19/17 06:00 AST 19 U/L (14-36) 04/19/17 06:00 ALT 22 U/L (9-52) 04/19/17 06:00 Alkaline Phosphatase 76 U/L (38-126) 04/19/17 06:00 Troponin I 0.0700 ng/mL (0.00-0.120) 04/19/17 06:00 NT-Pro-B Natriuret Pep 289 pg/ml (0-900) 04/18/17 15:20 Total Protein 6.1 G/DL (6.3-8.2) L 04/19/17 06:00 Albumin 3.8 g/dL (3.5-5.0) 04/19/17 06:00 Globulin 2.3 gm/dL (2.2-3.9) 04/19/17 06:00 Albumin/Globulin Ratio 1.6 (1.0-2.1) 04/19/17 06:00 Free T4 1.28 ng/dL (0.78-2.19) 04/20/17 06:00 Thyroxine (T4) 8.88 ug/dl (5.5-11.0) 04/20/17 06:00 TSH 3rd Generation 8.02 mIU/ML (0.46-4.68) H 04/20/17 06:00 Arterial Blood Potassium 3.1 mmol/L (3.6-5.2) L 04/18/17 16:15 Urine Color Straw (YELLOW) 04/18/17 16:20 Urine Clarity Clear (Clear) 04/18/17 16:20 Urine pH 7.0 (5.0-8.0) 04/18/17 16:20 Ur Specific [place] 1.006 (1.003-1.030) 04/18/17 16:20 Urine Protein 30 mg/dL (NEGATIVE) 04/18/17 16:20 Urine Glucose (UA) Neg mg/dL (Normal) 04/18/17 16:20 Urine Ketones Trace mg/dL (NEGATIVE) 04/18/17 16:20 Urine Blood Negative (NEGATIVE) 04/18/17 16:20 Urine Nitrate Negative (NEGATIVE) 04/18/17 16:20 Urine Bilirubin Negative (NEGATIVE) 04/18/17 16:20 Urine Urobilinogen 0.2-1.0 mg/dL (0.2-1.0) 04/18/17 16:20 Ur Leukocyte Esterase Trace Gerardo/uL (Negative) 04/18/17 16:20 Urine RBC (Auto) 3 /hpf (0-3) 04/18/17 16:20 Urine Microscopic WBC 3 /hpf (0-5) 04/18/17 16:20 Ur Squamous Epith Cells 5 /hpf (0-5) 04/18/17 16:20 Urine Bacteria Rare (<OCC) 04/18/17 16:20 Digoxin 1.8 ng/mL (0.8-2.0) 04/20/17 06:00 Salicylates < 1.0 mg/dl 04/18/17 19:15 Thyroperoxidase Ab <1 IU/mL (<9) 04/20/17 06:00 Thyroglobulin Antibody <1 IU/mL (< OR = 1) 04/20/17 06:00 Attending/Attestation - Attestation I have personally seen and examined this patient.: Yes I have fully participated in the care of the patient.: Yes I have reviewed all pertinent clinical information, including history, physical exam and plan: Yes
== END 2017-04-21 12:30 | disposition home or self-care (01) | DRG 309 ==
LOC: H.ER 14:20 → H.ERHOLD 16:08 → H.ICU/CCU 18:17 → H.TEL 04-20 14:04
PROVIDERS: ADMIT Family Medicine; ATTEND Family Medicine
DX: I47.1 Supraventricular tachycardia (principal); E87.3 Alkalosis; I48.0 Paroxysmal atrial fibrillation; R17 Unspecified jaundice; I10 Essential (primary) hypertension; E87.6 Hypokalemia; E78.00 Pure hypercholesterolemia, unspecified; E78.5 Hyperlipidemia, unspecified; R07.9 Chest pain, unspecified; Z91.040 Latex allergy status; Z88.0 Allergy status to penicillin; Z91.018 Allergy to other foods; F41.9 Anxiety disorder, unspecified; I44.0 Atrioventricular block, first degree; R94.6 Abnormal results of thyroid function studies; R00.1 Bradycardia, unspecified